=== PATIENT | female | born 1970 | race Caucasian/White ===

== ENCOUNTER → 2016-08-05 | Outpatient (CLI) | payer BC, OTHER ==
[~2016-08-05] MED LIST: ASPEC325 PO; BUPR-83 PO; BUPR200T2 PO; CEPH500C2 PO; CLC100 PO; CLX/20 PO; HYDR-3126 PO; LAMO1TAB21 PO; OXYSR10 PO; PANT1TAB48 PO; PRED20TA2 PO; RANI150T3 PO
[2016-08-05 10:13] LABS: BASO % 0.9 %; BASO ABS # 0.04 K/uL (0-0.2); COMPLETE YES; EOS % 5.1 %; IG% 0.2 %; LYMPH % 23.9 %; LYMPH ABS # 1.04 K/uL (1.2-3.4); MEAN CELL VOLUME 92.1 fL (80-100); MEAN CORPUSCULAR HEMOGLOBIN 28.9 pg (25-34); MEAN CORPUSCULAR HGB CONC 31.4 g/dl (32-36); MEAN PLATELET VOLUME 9.6 fL (7.4-10.4); MONO % 10.6 %; NEUT % 59.3 %; PLATELET COUNT 297 K/uL (130-400); WHITE BLOOD COUNT 4.35 K/uL (4.8-10.8)
[2016-08-05 10:50] LABS: ALT/SGPT 22 U/L (12-78); AST/SGOT 13 U/L (15-37); BLOOD UREA NITROGEN 9 mg/dl (7-18); BUN/CREATININE RATIO 10.7 (10-20); CALCIUM 7.8 mg/dl (8.5-10.1); CARBON DIOXIDE 27 mmol/L (21-32); CHLORIDE 108 mmol/L (98-107); CREATININE 0.83 mg/dl (0.60-1.20); GLUCOSE 93 mg/dl (70-99); SODIUM 141 mmol/L (136-145)
[2016-08-05 11:00] LABS: ALB/GLOB RATIO 0.9 (0.9-2); ALKALINE PHOSPHATASE 53 U/L (45-117); CHOLESTEROL 226 mg/dl (0-200); CHOLESTEROL/HDL RATIO 3.2; HDL CHOLESTEROL 71 mg/dl; LDL CHOLESTEROL CALCULATED 127 mg/dl; TRIGLYCERIDES 138 mg/dl (0-150); VERY LOW DENSITY LIPOPROT CALC 28 mg/dl
== END | disposition home or self-care (01) ==
LOC: C.LAB1850 09:17
PROVIDERS: ATTEND Physician Assistant
DX: R07.89 Other chest pain (principal)

== ENCOUNTER 2016-10-29 17:16 | Emergency (ER) | payer BC, OTHER ==
[~2016-10-29] VITALS: Ht 165.1 cm; Wt 147.2 kg
[~2016-10-29 17:16] MED LIST changes: -CEPH500C2 PO; -HYDR-3126 PO; -PRED20TA2 PO
[2016-10-29 17:21] VITALS: TEMP 37.5; Ht 165.1 cm; Wt 147.2 kg
[2016-10-29] MEDS ORDERED: hydrOXYzine HCL 25 MG TAB PO STA ×2 (17:39→19:13)
[2016-10-29] MEDS ORDERED: DEXAMETHASONE SOD INJ 10 MG/ML VIAL IV ONE (17:45)
[2016-10-29 18:05] LABS: BASO % 0.4 %; BASO ABS # 0.02 K/uL (0-0.2); COMPLETE YES; EOS % 3.9 %; HEMATOCRIT 35.8 % (37-47); IG% 0.2 %; LYMPH % 16.8 %; LYMPH ABS # 0.94 K/uL (1.2-3.4); MEAN CORPUSCULAR HEMOGLOBIN 30.4 pg (25-34); MEAN CORPUSCULAR HGB CONC 32.7 g/dl (32-36); MEAN PLATELET VOLUME 9.1 fL (7.4-10.4); MONO % 5.4 %; NEUT % 73.3 %; PLATELET COUNT 240 K/uL (130-400); RED BLOOD COUNT 3.85 M/uL (4.2-5.4)
[2016-10-29 18:16] LABS: PROTHROMBIN TIME (PATIENT) 10.8 SECONDS (9.0-12.0)
[2016-10-29 18:23] LABS: BUN/CREATININE RATIO 12.9 (10-20); CALCIUM 7.9 mg/dl (8.5-10.1); POTASSIUM 3.7 mmol/L (3.5-5.1)
[2016-10-29] MEDS ORDERED: OXYCODONE HCL IR 5 MG TAB (IMMEDIATE RELEASE) PO STA (18:40)
--- NOTE | 2016-10-29 18:57 | EMERGENCY ROOM VISIT NOTE ---
ED Visit Note First contact with patient: 17:28 The patient was seen and examined with Alicia Cardona PA-C. I agree with the history, physical and findings. Please see the note for disposition and details. The patient has diffuse dermatitis was been going on for many months. I was concerned about a secondary infection in the leg. The patient will be treated with antibiotics and prednisone. Atarax was discussed. She will contact her car usher on Monday to see about bumping up her pending tertiary referral. Unfortunately in the offices are closed right now and we cannot assist in that endeavor. There is no evidence of Hernandez Johnsons or TEN. No necrotizing fasciitis.
[2016-10-29] MEDS ORDERED: CEPH500C2 PO (19:19)
[2016-10-29] MEDS ORDERED: PRED20TA2 PO (19:19)
[2016-10-29] MEDS ORDERED: HYDR-3126 PO (19:19)
--- NOTE | 2016-10-29 19:22 | EMERGENCY ROOM VISIT NOTE ---
History First contact with patient: 17:28 Chief Complaint: RASH Stated Complaint: RASH History of Present Illness The patient is a 46 year old female who presents to the Emergency Room with complaints of a rash all over her body. The patient states that she is under the care of Dr. Bailey for her rash. The patient states that one year ago the rash started with just small bumps on the top of both her feet were very itchy. In September of this year she started with similar bumps and redness on both her forearms. Since that time it has spread over most of her body. She has gone back to Dr. Bailey 4 times for the rash. She was using steroid creams but it did not seem to get any better. She has an appointment at [facility] at the end of November for a second opinion. The patient has been taking Benadryl around the clock for the itch with little relief. The patient states that she has been scratching at the rash. The patient denies any fever, throat or chest tightness. Review of Systems 10 system review was performed and was negative unless stated otherwise history of present illness. Past Medical/Surgical History Medical Problems: (1) Depressive Disorder Nec (2) Morbid Obesity (3) Reflux Esophagitis Surgical Problems: (1) H/O section (2) History of hysterectomy (3) Hx of cholecystectomy Social History Smoking Status: Never Smoker Marital Status: Occupation Status: employed Current/Historical Medications Scheduled Bupropion (Wellbutrin), 100 MG PO BID Citalopram (Citalopram Hydrobromide), 20 MG PO QAM Lamotrigine (Lamotrigine), 50 MG PO BID Pantoprazole (Protonix), 40 MG PO DAILY Physical Exam Vital Signs Date Time Temp Pulse Resp B/P (MAP) Pulse Ox O2 Delivery O2 Flow Rate FiO2 10/29/16 18:54 95 16 121/70 98 Room Air 10/29/16 17:21 37.5 118 20 173/106 97 Room Air Physical Exam GENERAL: Obese 46-year-old white female appears in no acute distress. MENTAL Status: Alert and oriented 3. NECK: Supple, no lymphadenopathy noted. No carotid bruits noted. LUNGS: Clear auscultation without wheezes rales or rhonchi. CARDIAC: Regular rate and rhythm without murmur. SKIN: The patient has a dry erythematous raised scaling rash over her trunk, bilateral arms and bilateral legs. There is also a small amount on her face. It is also on her the tops of her feet. The rash blanches. There is no deep erythema or any purulent drainage. There is some oozing open areas with clear drainage on the back of both lower legs. Medical Decision & Procedures Laboratory Results 10/29/16 18:00 Red Blood Count 3.85, Mean Corpuscular Volume 93.0, Mean Corpuscular Hemoglobin 30.4, Mean Corpuscular Hemoglobin Concent 32.7, Mean Platelet Volume 9.1, Neutrophils (%) (Auto) 73.3, Lymphocytes (%) (Auto) 16.8, Monocytes (%) (Auto) 5.4, Eosinophils (%) (Auto) 3.9, Basophils (%) (Auto) 0.4, Neutrophils # (Auto) 4.11, Lymphocytes # (Auto) 0.94, Monocytes # (Auto) 0.30, Eosinophils # (Auto) 0.22, Basophils # (Auto) 0.02 10/29/16 18:00 Test 10/29/16 18:00 White Blood Count 5.60 K/uL (4.8-10.8) Red Blood Count 3.85 M/uL (4.2-5.4) Hemoglobin 11.7 g/dL (12.0-16.0) Hematocrit 35.8 % (37-47) Mean Corpuscular Volume 93.0 fL (80-100) Mean Corpuscular Hemoglobin 30.4 pg (25-34) Mean Corpuscular Hemoglobin Concent 32.7 g/dl (32-36) Platelet Count 240 K/uL (130-400) Mean Platelet Volume 9.1 fL (7.4-10.4) Neutrophils (%) (Auto) 73.3 % Lymphocytes (%) (Auto) 16.8 % Monocytes (%) (Auto) 5.4 % Eosinophils (%) (Auto) 3.9 % Basophils (%) (Auto) 0.4 % Neutrophils # (Auto) 4.11 K/uL (1.4-6.5) Lymphocytes # (Auto) 0.94 K/uL (1.2-3.4) Monocytes # (Auto) 0.30 K/uL (0.11-0.59) Eosinophils # (Auto) 0.22 K/uL (0-0.5) Basophils # (Auto) 0.02 K/uL (0-0.2) RDW Standard Deviation 54.3 fL (36.4-46.3) RDW Coefficient of Variation 16.1 % (11.5-14.5) Immature Granulocyte % (Auto) 0.2 % Immature Granulocyte # (Auto) 0.01 K/uL (0.00-0.02) Prothrombin Time 10.8 SECONDS (9.0-12.0) Prothromb Time International Ratio 1.0 (0.9-1.1) Activated Partial Thromboplast Time 25.9 SECONDS (21.0-31.0) Partial Thromboplastin Ratio 1.0 Anion Gap 3.0 mmol/L (3-11) Est Creatinine Clear Calc Drug Dose 101.1 ml/min Estimated GFR () 77.2 Estimated GFR (Non- 66.6 BUN/Creatinine Ratio 12.9 (10-20) Calcium Level 7.9 mg/dl (8.5-10.1) Medications Administered Medications (Trade) Dose Ordered Sig/Cain Route Start Time Stop Time Status Last Admin Dose Admin Dexamethasone Sodium Phosphate (Decadron Inj) 10 mg NOW ONCE IV 10/29/16 17:45 10/29/16 17:46 DC 10/29/16 17:54 10 MG Hydroxyzine HCl (Vistaril Tab) 25 mg NOW STAT PO 10/29/16 17:39 10/29/16 17:41 DC 10/29/16 17:54 25 MG Oxycodone HCl (Roxicodone Immediate Rel Tab) 10 mg NOW STAT PO 10/29/16 18:40 10/29/16 18:42 DC 10/29/16 18:55 10 MG ED Course The patient was evaluated. The patient's EMR medication list were reviewed. IV access was obtained. CBC, differential and renal profile as well as coags were ordered. The patient was given Decadron 10 mg IV and Atarax 25 mg by mouth. Labs are reviewed and were unremarkable. The patient was reevaluated and stated she was still itchy and and pain. The patient was therefore given OxyIR 10 mg by mouth for pain. The patient was reevaluated. She was also independently evaluated by macule who agreed with treatment plan. The patient was given additional 50 mg of Atarax by mouth. We discussed at length with the patient that her she needs to be addressed with dermatology. The patient verbalized understanding. The patient was discharged home with a family member driving. Medical Decision Differential diagnosis include cellulitis, dermatitis, psoriasis, allergic dermatitis, scabies Impression Primary Impression: Dermatitis Departure Information Dispostion Home / Self-Care Condition GOOD Prescriptions Cephalexin Monohydrate (KEFLEX) 500 Mg Cap 500 MG PO QID for 10 Days, #40 CAP Prov: Nevaeh Cardona PA-C 10/29/16 Prednisone (Prednisone Tab) 20 Mg Tab 3 TAB PO DAILY for 5 Days, #15 TAB FOR 4 DAYS Prov: Nevaeh Cardona PA-C 10/29/16 Hydroxyzine Hcl (ATARAX) 50 Mg Tab 1-2 TAB PO Q6 for Itching, #60 TAB 2 Refills Prov: Nevaeh Cardona PA-C 10/29/16 Referrals No Doctor, Assigned (PCP) Forms HOME CARE DOCUMENTATION FORM, IMPORTANT VISIT INFORMATION, WORK / SCHOOL INSTRUCTIONS Patient Instructions My [facility] Ti[facility]do Additional Instructions Keep areas is cool as possible. Do not use any fragrance moisturizers. May try Vaseline with cotton socks over top overnight. Take Atarax as prescribed. May also take coyk-xkl-likvuul Cuca every 12 hours. Atarax may make you drowsy. Take prednisone as prescribed. Take Keflex as prescribed. Call Dr. Bailey on Monday to see if he can get chair appointment at [facility] dermatology moved to an earlier date. When you are driving tomorrow take frequent stops and walk around the car to prevent a clot in your leg.
[2016-10-29 19:33] VITALS: BP 121/70; PULSE 95; O2SAT 98
[2016-10-29] MEDS ORDERED: OXYCODONE IR HOME PACK PO ONE (19:45)
[2016-10-29] MEDS ORDERED: CEPHALEXIN 500MG HOME PACK 1 EA BTL PO ONE (20:11)
[2016-10-29] MEDS ORDERED: EMPTY 8 DRAM VIAL ONE (20:11)
== END 2016-10-29 19:34 | disposition home or self-care (01) ==
LOC: C.EDB 17:18 → C.EDD 19:34
DX: L30.9 Dermatitis, unspecified (principal); F32.9 Major depressive disorder, single episode, unspecified; E66.01 Morbid (severe) obesity due to excess calories; Z79.899 Other long term (current) drug therapy

== ENCOUNTER 2019-04-14 01:51 | Observation (INO) ==
[2019-04-14] MEDS ORDERED: DIPHTHERIA/TETANUS/PERTUSSIS 0.5 ML SYR/VIAL IM ONE (02:10)
[2019-04-14] MEDS ORDERED: fentaNYL citrate 100 MCG/2 ML VIAL IV STA (02:10)
--- NOTE | 2019-04-14 02:16 | Emergency Department Note ---
ED Provider Note Name: DOROTHY HUTTON Age: 49 Arrives Via: Walk-In Informant: Patient, Children CC: head injury HPI: 49F arrives for evaluation of head injury. Patient carrying groceries in to the house when she slipped on wet cement and hit head on ground. Denies LOC but felt unsteady. Able to call children who came and took her to ED. Walking, sound, light, movement, talking, all make headache worse. Notes some associated neck stiffness. Admits left hand pain where she hit it off ground. No me dications prior to arrival. Staying still and quiet makes headache better. No other injuries. Denies syncope, nor other symptoms prior to fall. She does not fall regularly. Children note she was having trouble ambulating after head injury. Denies ETOH/drug abuse. ROS: See above HPI for pertinent positives & negatives. A total of 10 systems reviewed and were otherwise negative. Past Medical History:GERD, Depression, Migraine, Anxiety Past Surgical History:Cholecystectomy, Knee replacement, Hysterectomy, [place] tooth, strabismus surg Family History:Grandparents DMII Social History:Lives with children, nonsmoker, rare ETOH, no drugs Home Medications:See Below Allergies:See Below Vitals:Blood Pressure 119/69, Pulse 96, Resp 22, T 37C, O2 98% on RA Physical Exam: GENERAL: Patient is very anxious appearing and in moderate distress. HEAD: Large contusion over bilateral forehead R>L EYES: No scleral icterus, unremarkable pupils. ENT: Mucous membranes moist, no nasal congestion. NECK: No masses appreciated, nomeningismus, trachea is midline. RESPIRATORY: No dyspnea. Clear to auscultation and equal bilaterally. No wheeze, no rhonchi. CARDIOVASCULAR: Regular rate and rhythm.No murmurs, rubs, gallops appreciated. GASTROINTESTINAL: Abdomen soft, non-tender, no peritonitis.Bowel sounds positive.No masses appreciated. BACK: No midline tenderness, no CVA tenderness EXTREMITIES: Normal motion all extremities, no cyanosis, no edema. NEUROLOGIC: Alert and oriented, no acute motor or sensory deficits, no focal weakness, cranial nerves grossly intact. SKIN: Abrasion over left lateral hand at base 5th digit no active bleeding. No rash, no jaundice, no diaphoresis. ED Course: Prior Medical Record, Triage/Nursing Notes, Medications, Allergies reviewed by Me Vital Signs: reviewed and remarkable for no acute findings Labs:Reviewed and remarkable for no significant abnormalities Interventions: saline lock, fenantyl 75mcg IV, dilaudid 1mg IV, toradol 30mg IV,a dacel IM Imaging: [facility] Radiologist interpretation reviewed by me: ct head, cervical spine negative acute findings other then forehead contusion and cervical arthritic findings Xray Results per my interpretation: Hand, left 3 view: no acute fracture, dislocation Consults:Dr Mejia Reassessments/Times: Multiple. Gradually improving pain though ataxia. After several hours still unable to ambulate without falling. Blood pressure:Normal.No Referral necessary Disposition:Hospitalization Differentials:ICH, skull fx, cervical fracture, dislocation, tetanus vaccination, hand fracture, non-mechanical fall amongst other pathologies. Medical Decision Makin yr old female with h/o gerd, depression, anxiety and migraines arrives following what she makes clear was mechanical fall resulting in head injury without LOC. She arrives very upset and uncomfortable with headache and not willing to let full examination. After initial fentanyl feeling a bit better and exam completed. Continued headache and 1mg IV dilaudid given while awaiting ct findings. CT head/cervical negative acute findings. Toradol post CT with improvement headache and manageable pain. Wishing to try getting home but fails at ambulating due to ataxia. No neck pain any further. No stroke findings on examination. Does not seem consistent with dissection/thrombosis. Do to persistent ambulatory issues and no improvement will bring in to hospital for further monitoring and observation. Impression: Ataxia Closed Head Injury Concussion Psnxrqelow-pvoshar-gisexasfu vaccination Post-Concussion Headache Chu Vivas MD Impression & Plan Concussion, Closed head injury, Ataxia, Lsigvowmys-bbjurxc-fhfzxaadc (DTP) vaccination, Post-concussion headache Past Med/Surg History Medical History (Updated 04/14/19 @ 05:19 by Ras Mejia MD) Anxiety Anxiety and depression Depression GERD (gastroesophageal reflux disease) Migraine Temporomandibular joint disorder BILAT-CLICKS AND POPS LOCKED 5 YRS AGO Surgical History History of arthroscopy of left knee x3 History of section x3 History of cholecystectomy History of dilatation and curettage History of esophagogastroduodenoscopy (EGD) History of hysterectomy History of strabismus surgery left eye x2 History of total left knee replacement (TKR) History of wisdom tooth extraction Social History Preferred Language: Vietnamese Communication Ability: Effective Visual Impairment: Limited Hearing Ability: Hard of Hearing 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 Beliefs That Will Affect Care: None Current Living Situation: Family Current Living Situation Comment: Lives with 3 kids Feels Safe at Home: Yes Smoking Status: Never smoker Second Hand Exposure: Yes (mother smoked) ; Hx Alcohol Use: Yes (RARELY) Alcohol type: beer Hx Substance Use: No Dental Care, Regularly: Yes Physical Activity Frequency: Daily Results & Data Vital Signs Vital Signs - 24 hr 04/14/19 01:54 04/14/19 03:13 04/14/19 05:22 Temperature 37 C Temperature Source Oral Pulse Rate 96 H Pulse Rate [Finger] 78 94 H Respiratory Rate 22 18 18 Respiratory Effort / Characteristics Non-Labored Spontaneous Non-Labored Spontaneous Respiratory Depth Normal Normal Blood Pressure 119/69 Blood Pressure [Right Arm] 154/89 H 161/95 H Blood Pressure Mean 85 Blood Pressure Mean [Right Arm] 110 117 Blood Pressure Position Sitting Pulse Oximetry 98 95 95 Oxygen Delivery Method Room Air Room Air Room Air Sepsis Recent Fever Within 48 Hours No Sepsis New/Unexplained Change in Mental Status No Sepsis Action Taken by Nursing No Action Required 04/14/19 05:33 Temperature Temperature Source Pulse Rate 93 H Pulse Rate [Finger] Respiratory Rate 18 Respiratory Effort / Characteristics Respiratory Depth Blood Pressure 144/87 H Blood Pressure [Right Arm] Blood Pressure Mean Blood Pressure Mean [Right Arm] Blood Pressure Position Pulse Oximetry 95 Oxygen Delivery Method Room Air Sepsis Recent Fever Within 48 Hours Sepsis New/Unexplained Change in Mental Status Sepsis Action Taken by Nursing Laboratory Data Result diagrams: 04/14/19 02:20 04/14/19 02:20 Lab Results 04/14/19 04/14/19 04/14/19 Range/Units 02:20 02:20 02:20 WBC 8.03 (4.8-10.8) K/uL RBC 4.13 L (4.2-5.4) M/uL Hgb 13.1 (12.0-16.0) g/dL Hct 39.9 (37-47) % MCV 96.6 (80-100) fL MCH 31.7 (25-34) pg MCHC 32.8 (32-36) g/dL RDW Std Deviation 50.2 H (36.4-46.3) fL RDW Coeff of Bob 14.4 (11.5-14.5) % Plt Count 283 (130-400) K/uL MPV 9.4 (7.4-10.4) fL Immature Gran % (Auto) 0.1 % Neut % (Auto) 66.2 % Lymph % (Auto) 21.8 % [place] % (Auto) 9.7 % Eos % (Auto) 1.7 % Baso % (Auto) 0.5 % Immature Gran # (Auto) 0.01 (0.00-0.02) K/uL Neut # (Auto) 5.31 (1.4-6.5) K/uL Lymph # (Auto) 1.75 (1.2-3.4) K/uL [place] # (Auto) 0.78 H (0.11-0.59) K/uL Eos # (Auto) 0.14 (0-0.5) K/uL Baso # (Auto) 0.04 (0-0.2) K/uL Sodium 137 (136-145) mmol/L Potassium 4.3 (3.5-5.1) mmol/L Chloride 108 H (98-107) mmol/L Carbon Dioxide 25 (21-32) mmol/L Anion Gap 4.0 (3-11) BUN 13 (7-18) mg/dl Creatinine 1.00 (0.6-1.2) mg/dl Est Cr Clr Drug Dosing Not Reportable Est GFR ( Amer) 75.5 Est GFR (Non-Af Amer) 65.2 BUN/Creatinine Ratio 13.3 (10-20) Glucose 87 (70-99) mg/dl Calcium 8.6 (8.5-10.1) mg/dl Ethyl Alcohol mg/dL < 3.0 (0-3) mg/dl Administered Medications Discontinued Medications Diphtheria/Pertussis/Tetanus Vacc (Adacel) 0.5 ml IM .ONCE ONE Stop: 04/14/19 02:11 Last Admin: 04/14/19 02:19 Dose: 0.5 ml Documented by: [id number] Fentanyl Citrate (Fentanyl Citrate) 75 mcg IV NOW STA Stop: 04/14/19 02:11 Last Admin: 04/14/19 02:18 Dose: 75 mcg Documented by: [id number] Hydromorphone HCl (Dilaudid) 1 mg IV NOW STA Stop: 04/14/19 02:42 Last Admin: 04/14/19 02:45 Dose: 1 mg Documented by: [id number] Ketorolac Tromethamine (Toradol) 30 mg IV NOW STA Stop: 04/14/19 03:09 Last Admin: 04/14/19 03:11 Dose: 30 mg Documented by: [id number] Discharge Plan Visit Data Chief Complaint: Fall Stated Complaint: FALL,BUMP ON HEAD,SHAKING ED Provider: Chu Vivas Discharge Problem: Concussion, Closed head injury, Ataxia, Gbovwosgbp-nhbnygz-jvdkpdpcd (DTP) vaccination, Post-concussion headache Discharge Instructions Interventions: ED Discharge Assessment Last Done: 04/14/19 05:33 Forms Stand Alone Forms: [facility] Prescriptions Prescriptions: No Action cyclobenzaprine 10 mg tablet 10 mg PO TID PRN (Reason: muscle spasm) Qty: 20 RF: 0 bupropion HCl 100 mg Tablet 100 mg PO QPM RF: 0 lamotrigine [Lamictal] 100 mg Tablet 100 mg PO QAM RF: 0 bupropion HCl 200 mg Tablet Sustained-Release 12 Hr 200 mg PO QAM RF: 0 Prilosec OTC 20 mg Tablet,Delayed Release (Dr/Ec) 20 mg PO DAILY PRN (Reason: Acid Reflux) RF: 0 lamotrigine 100 mg tablet 50 mg PO QPM RF: 0 citalopram 40 mg tablet 60 mg PO DAILY RF: 0 gabapentin 600 mg tablet 600 mg PO TID RF: 0 Referrals Referrals: Rosetta Santana MD [Primary Care Provider] - Discharge Problem: Concussion Qualifiers: Encounter type: initial encounter Loss of consciousness presence/duration: without LOC Qualified Code(s): S06.0X0A - Concussion without loss of consciousness, initial encounter Closed head injury Qualifiers: Encounter type: initial encounter Qualified Code(s): S09.90XA - Unspecified injury of head, initial encounter
[2019-04-14 02:36] LABS: Basophils # (auto) 0.04 K/uL (0-0.2); Basophils % (auto) 0.5 %; Eosinophils # (auto) 0.14 K/uL (0-0.5); Eosinophils % (auto) 1.7 %; Hematocrit (blood only) 39.9 % (37-47); Hemoglobin 13.1 g/dL (12.0-16.0); Immature Granulocytes # (auto) 0.01 K/uL (0.00-0.02); Immature Granulocytes % (auto) 0.1 %; Lymphocytes # (auto) 1.75 K/uL (1.2-3.4); Lymphocytes % (auto) 21.8 %; Mean Corpuscular Hemoglobin 31.7 pg (25-34); Mean Corpuscular Hgb Conc 32.8 g/dL (32-36); Mean Corpuscular Volume 96.6 fL (80-100); Mean Platelet Volume 9.4 fL (7.4-10.4); Monocytes # (auto) 0.78 K/uL (0.11-0.59); Monocytes % (auto) 9.7 %; Neutrophils # (auto) 5.31 K/uL (1.4-6.5); Neutrophils % (auto) 66.2 %; Platelet Count 283 K/uL (130-400); RDW Coefficient of Variation 14.4 % (11.5-14.5); RDW Standard Deviation 50.2 fL (36.4-46.3); Red Blood Count 4.13 M/uL (4.2-5.4); White Blood Count 8.03 K/uL (4.8-10.8)
[2019-04-14] MEDS ORDERED: HYDROmorphone INJ 1 MG/ML SYRINGE IV STA (02:41)
[2019-04-14 02:56] LABS: BUN Creatinine Ratio 13.3 (10-20); Blood Urea Nitrogen 13 mg/dl (7-18); Calcium 8.6 mg/dl (8.5-10.1); Carbon Dioxide 25 mmol/L (21-32); Chloride 108 mmol/L (98-107); Est GFR (African American) 75.5; Est GFR (Non-African American) 65.2; Glucose 87 mg/dl (70-99); Potassium 4.3 mmol/L (3.5-5.1); Sodium 137 mmol/L (136-145)
[2019-04-14] MEDS ORDERED: KETOROLAC 30 MG/ML VIAL IV STA (03:08)
--- NOTE | 2019-04-14 05:26 | History & Physical Report ---
Date of Service April 14, 2019 Assessment & Plan (1) Post-concussion headache: Postconcussive headache/post closed head injury/ataxia, ambulatory dysfunction- The patient has been given a combination of fentanyl citrate 75 mcg IV, Dilaudid 1 mg IV and Toradol 30 mg IV, that she reports have given no improvement in her headache, and is asking for more pain medications now. Place on acetaminophen 1 g IV every 8 hours PRN Benadryl 25 mg IV every 4 hours as needed. Neuro checks per protocol every 4 hours x3 sets. Consult neurology. Present on Admission?: Yes (2) Closed head injury: CT of head negative for acute injury. Present on Admission?: Yes (3) Ataxia: Ataxia/ambulatory dysfunction- Nurses report patient had difficulty walking because she was trying to keep a towel over her head while she was walking. Patient does have chronic sensory disturbance for which she takes medications, that may be aggravated. Present on Admission?: Yes (4) Anxiety and depression: Anxiety and depression/migraine- Continue her usual regimen: Bupropion, citalopram, gabapentin, lamotrigine. Consult neurology Present on Admission?: Yes History of Present Illness Chief Complaint: The patient presents to the emergency department complaining of right-sided headache after she slipped and fell while stepping over a curb, and hitting her head. Primary Care Provider: Rosetta Santana MD The patient is a 49-year-old female with a past medical history including anxiety and depression, muscle spasm, and GERD. She presents to the emergency department with right-sided headache and nausea after she slipped on the wet ground and tripped over a curb, hitting the right side of her head. She denies loss of consciousness or vision change. She has chronic tinnitus, and chronic numbness/tingling in hands and feet. Allergies Allergy/AdvReac Type Severity Reaction Status Date / Time velez Allergy Mild itchy Verified 04/14/19 02:16 throat kiwi Allergy Mild itchy Verified 04/14/19 02:16 throat nut - unspecified Allergy Mild itchy Verified 04/14/19 02:16 throat pollen extracts Allergy Mild ITCHING, Verified 04/14/19 02:16 SNEEZING No Known Drug Allergies Allergy Unknown Verified 04/14/19 02:16 Home Medications Home Medications Medication Instructions Recorded Confirmed Type Prilosec OTC 20 mg PO DAILY PRN 07/18/18 04/14/19 History bupropion HCl 100 mg PO QPM 07/18/18 04/14/19 History bupropion HCl 200 mg PO QAM 07/18/18 04/14/19 History lamotrigine [Lamictal] 100 mg PO QAM 07/18/18 04/14/19 History cyclobenzaprine 10 mg tablet 10 mg PO TID PRN #20 tab 12/18/18 04/14/19 Rx citalopram 60 mg PO DAILY 04/14/19 04/14/19 History gabapentin 600 mg PO TID 04/14/19 04/14/19 History lamotrigine 50 mg PO QPM 04/14/19 04/14/19 History Past Med/Surg History Social History Preferred Language: Armenian Communication Ability: Effective Visual Impairment: Limited Hearing Ability: Hard of Hearing Accounts Payable Professional Required: No Beliefs That Will Affect Care: None Current Living Situation: Family Current Living Situation Comment: Lives with 3 kids Feels Safe at Home: Yes Smoking Status: Never smoker Second Hand Exposure: Yes (mother smoked) ; Hx Alcohol Use: Yes (RARELY) Alcohol type: beer Hx Substance Use: No Dental Care, Regularly: Yes Physical Activity Frequency: Daily Review of Systems Review of Systems: The patient denies chest pain, palpitations, shortness of breath, dyspnea on exertion, cough, lower extremity swelling, sore throat, fevers, chills, sweats, omiting, diarrhea , constipation, abdominal pain, pelvic pain, blood in urine or stool, dysuria, urinary frequency or urgency, memory loss, loss of consciousness, rash, abnormal bruising or bleeding, focal weakness, numbness or tingling in arms or legs,back or neck pain, or night sweats. She has no change in her chronic numbness/tingling in arms and legs, or change in generalized muscle aches. The review of systems is otherwise negative other than for that already noted above, and at least 10 systems have been reviewed. Physical Exam Physical Exam: The patient is awake, alert and oriented 3, well developed and well nourished, normocephalic and atraumatic, lying in bed and in no acute distress. HEENT--PERRL, EOMI, mucous membranes and oropharynx normal. Heart--normal S1 and S2. No murmurs, rubs or gallops. Lungs--clear bilaterally, no respiratory distress, no accessory muscle use. Abdomen--normal bowel sounds and soft. Nontender. Nondistended, no hernias or masses, no organomegaly. Extremities--no cyanosis or clubbing. No edema. Dermatologic--normal skin turgor, normal color, no abnormal lymph nodes, no r chyna. Neurologic--cranial nerves II through XII grossly intact. Rheumatologic--normal range of motion. Psychiatric--normal affect. Results & Data Vital Signs (Past 12 Hours) Vital Signs Temp Pulse Pulse Resp BP BP Pulse Ox 04/14/19 03:13 78 18 154/89 H 95 04/14/19 01:54 98.6 F 96 H 22 119/69 98 Laboratory Results Laboratory Results WBC 8.03 K/uL (4.8-10.8) 04/14/19 02:20 RBC 4.13 M/uL (4.2-5.4) L 04/14/19 02:20 Hgb 13.1 g/dL (12.0-16.0) 04/14/19 02:20 Hct 39.9 % (37-47) 04/14/19 02:20 MCV 96.6 fL (80-100) 04/14/19 02:20 MCH 31.7 pg (25-34) 04/14/19 02:20 MCHC 32.8 g/dL (32-36) 04/14/19 02:20 RDW Std Deviation 50.2 fL (36.4-46.3) H 04/14/19 02:20 RDW Coeff of Bob 14.4 % (11.5-14.5) 04/14/19 02:20 Plt Count 283 K/uL (130-400) 04/14/19 02:20 MPV 9.4 fL (7.4-10.4) 04/14/19 02:20 Immature Gran % (Auto) 0.1 % 04/14/19 02:20 Neut % (Auto) 66.2 % 04/14/19 02:20 Lymph % (Auto) 21.8 % 04/14/19 02:20 Traverse % (Auto) 9.7 % 04/14/19 02:20 Eos % (Auto) 1.7 % 04/14/19 02:20 Baso % (Auto) 0.5 % 04/14/19 02:20 Immature Gran # (Auto) 0.01 K/uL (0.00-0.02) 04/14/19 02:20 Neut # (Auto) 5.31 K/uL (1.4-6.5) 04/14/19 02:20 Lymph # (Auto) 1.75 K/uL (1.2-3.4) 04/14/19 02:20 Traverse # (Auto) 0.78 K/uL (0.11-0.59) H 04/14/19 02:20 Eos # (Auto) 0.14 K/uL (0-0.5) 04/14/19 02:20 Baso # (Auto) 0.04 K/uL (0-0.2) 04/14/19 02:20 Sodium 137 mmol/L (136-145) 04/14/19 02:20 Potassium 4.3 mmol/L (3.5-5.1) 04/14/19 02:20 Chloride 108 mmol/L (98-107) H 04/14/19 02:20 Carbon Dioxide 25 mmol/L (21-32) 04/14/19 02:20 Anion Gap 4.0 (3-11) 04/14/19 02:20 BUN 13 mg/dl (7-18) 04/14/19 02:20 Creatinine 1.00 mg/dl (0.6-1.2) 04/14/19 02:20 Est Cr Clr Drug Dosing Not Reportable 04/14/19 02:20 Est GFR ( Amer) 75.5 04/14/19 02:20 Est GFR (Non-Af Amer) 65.2 04/14/19 02:20 BUN/Creatinine Ratio 13.3 (10-20) 04/14/19 02:20 Glucose 87 mg/dl (70-99) 04/14/19 02:20 Calcium 8.6 mg/dl (8.5-10.1) 04/14/19 02:20 Ethyl Alcohol mg/dL < 3.0 mg/dl (0-3) 04/14/19 02:20 Diagnostic Findings [facility] Patient: DOROTHY HUTTON (Female) : 66 Status: ER Date: 04/14/19 02:38 Room #: History: fall, head injury, neck pain Slices: [id number] Priors: Tech: Bari Byrd @ [id number] Exams: CT HEAD, CT C SPINE Accession Numbers: [id number], [id number] Preliminary Findings Only See Final Report For Complete Findings CT HEAD: No intracranial hemorrhage, midline shift or mass effect. No skull fracture. Right supraorbital and frontal hyperdense superficial soft tissue swelling, most consistent with contusive injury. No radiopaque foreign body. CT C SPINE: No acute osseous traumatic injury or significant abnormal alignment. Significant multilevel disc spondylosis with narrowing and marginal hypertrophic changes at multiple levels. No severe osseous canal stenosis suggested. Visible lung apices demonstrate no radiographic evidence for significant acute traumatic injury. Radiologist: Jamaal Kohli MD Study ready at 02:43 and initial results transmitted at 03:03 *This report constitutes a preliminary interpretation only. Non-acute findings felt to be unrelated to the clinical presentation may not be discussed in this report. The study will be interpreted and a final report will be generated by the local Radiologist the following shift. To reach the hospital radiology department call [phone]. If a discrepancy is found between the preliminary and final interpretations of this study, please notify us via our Client Portal at [email or web address] QA Exams.You can also fax this report with a description of the discrepancy, or include the final report, to our [facility] fax number [phone].If faxing, please indicate the severity of discrepancy using one of the following categories: [ ] 1 - Agree/Informational [ ] 2 - Unlikely to Affect Management [ ] 3 - Possible Eventual Change of Management [ ] 4 - Probable Immediate Change of Management For all other patient related information, please fax us at [phone] [id number] Code Status & VTE Plan Code Status Full code VTE Prophylaxis Plan VTE Prophylaxis will be ordered: Yes PG Care Time/CCT Total # of Minutes Spent Total Time Spent with Patient: Total time spent is greater than 50% in coordination of care (as documented) at patient's floor/unit and/or counseling patient: (1) Closed head injury Encounter type: initial encounter Qualified Code(s): S09.90XA - Unspecified injury of head, initial encounter
[2019-04-14] MEDS ORDERED: MAGNESIUM HYDROXIDE SUSP 30 ML UDC PO PRN (06:00)
[2019-04-14] MEDS ORDERED: ALUMINUM/MAGNESIUM SUSP 30 ML UDC PO PRN (06:00)
[2019-04-14] MEDS ORDERED: DiphenhydrAMINE HCL 50 MG/ML VIAL IV PRN (06:00)
[2019-04-14] MEDS ORDERED: ACETAMINOPHEN 1,000 MG/100 ML VIAL IV PRN (06:00)
[2019-04-14] MEDS ORDERED: POLYETHYLENE (MIRALAX) 17 GM PACK PO PRN (06:00)
[2019-04-14] MEDS ORDERED: ONDANSETRON INJ 2 MG/ML 2 ML VIAL IV PRN (06:00)
[2019-04-14] MEDS ORDERED: CYCLOBENZAPRINE HCL 10 MG TAB PO PRN (06:05)
[2019-04-14] MEDS ORDERED: PANTOprazole 40 MG TAB PO PRN (06:06)
[2019-04-14] MEDS: ACETAMINOPHEN 325 MG TAB PO PRN (06:30)
--- NOTE | 2019-04-14 06:44 | CT Scan Report ---
CT head/brain wo con CLINICAL HISTORY: Head pain status post trauma COMPARISON STUDY: No previous studies for comparison. TECHNIQUE: Axial CT of the brain is performed from the vertex to the skull base. IV contrast was not administered for this examination. A dose lowering technique was utilized adhering to the principles of ALARA. CT DOSE: 1048.76 mGy.cm FINDINGS: No intra or extra-axial mass lesions are visualized. There is no CT evidence of acute cortical infarc tion. There is no evidence of midline shift. There is no acute hemorrhage. No calvarial fractures ar e visualized. There is a right frontal scalp hematoma. There is no evidence of pathologic ventricular dilatation. There is no evidence of acute sinusitis IMPRESSION: Right frontal scalp hematoma. Otherwise normal noncontrast head CT for age. ACT 112: Negative or not required by law. Electronically signed by: Tin Rincon M.D. 04/14/2019 6:42 AM
--- NOTE | 2019-04-14 06:45 | CT Scan Report ---
CT OF THE CERVICAL SPINE CLINICAL HISTORY: Neck pain status post trauma COMPARISON STUDY: No previous studies for comparison. CT DOSE: TECHNIQUE: CT scan of the cervical spine was performed from the skull base to the thoracic inlet. Tamar ges are reviewed in the axial, sagittal, and coronal planes. IV contrast was not administered for thi s examination. A dose lowering technique was utilized adhering to the principles of ALARA. FINDINGS: The visualized portions of the lung apices reveal no evidence of pneumothorax. The prevertebral soft tissues are normal. No fractures or subluxations are visualized. There are multilevel degenerative changes IMPRESSION: No evidence of acute fracture or traumatic subluxation. ACT 112: Negative or not required by law. Electronically signed by: Tin Rincon M.D. 04/14/2019 6:44 AM
--- NOTE | 2019-04-14 06:47 | XRay Report ---
XR hand LT min 3V routine CLINICAL HISTORY: Left hand pain status post trauma COMPARISON: None. DISCUSSION: No acute fractures or dislocations are visualized. Positioning on the AP view is somewhat limited as the patient was unable to fully straighten her fingers. IMPRESSION: No acute fractures or dislocations identified. ACT 112: Negative or not required by law. Electronically signed by: Tin Rincon M.D. 04/14/2019 6:45 AM
[2019-04-14] MEDS: BuPROPion SR 100 MG TABCR PO SCH (07:41)
[2019-04-14] MEDS: GABAPENTIN 600 MG TAB PO SCH ×3 (07:41→20:54)
[2019-04-14] MEDS: CITALOPRAM 20 MG TAB PO SCH (07:41)
[2019-04-14] MEDS: lamoTRIgine 100 MG TAB PO SCH (07:42)
--- NOTE | 2019-04-14 08:29 | Neurology Consultation ---
Date of Consultation April 14, 2019 Assessment & Plan (1) Migraine: (2) Anxiety and depression: (3) Concussion: Anita Galloway is a 49 yo woman w/ PMH of migraine, anxiety/depression and GERD who p/t [facility] after GLF a/w head injury. # Post-traumatic headache: - would give IVFs and the following headache cocktail: toradol/reglan/benadryl q8h scheduled, magnesium 1g q12h, depakote 500mg IV q8h to try and help break headache - would continue to re-assure her that post-traumatic headaches usually improve over the first month or so. Her headache may or may not completely go away with these medications and headache pain should not keep her in the hospital. Discus sed with her that unless something abnormal is found on her MRI, she is safe to go home from a neurological standpoint and should manage her headache at home. - she should follow up in neurology outpatient in 2-4 weeks for post-traumatic headache management - she is already on multiple psychotropic medications at home (some which can actually worsen headaches); would continue these for now and we can discuss with her provider if any of those need changed - encourage her to limit OTC medication use to no more than 3 times per week to prevent rebound headaches (on discharge) - would obtain MRI brain w/ and w/o contrast to r/o intracranial hypotension; if intracranial hypotension signs noted, would recommend conservative measures with IVFs/caffeinated beverages/rest/lying flat for several days and referral for blood patch if no improvement after 1 week of conservative treatment # Gait imbalance: pt would not get out of bed to evaluate (would only sit up briefly before lying back down) so difficult to assess. No dysmetria or ataxia noted on observed movements in any extremity. - PT/OT evaluation - MRI brain as above Thank you for this interesting consult. Please call or text with questions. History of Present Illness Attending Physician: Laith Maddox DO History of Present Illness Anita Galloway is a 49 yo woman w/ PMH of migraine, anxiety/depression and GERD who p/t [facility] after GLF a/w head injury. Denies LoC but noted near immediate onset of headache a/w photophobia and phonophobia. She was also noted to have gait imbalance. In the ED, vitals were unremarkable. Labs including CBC/BMP were also unremarkable with Plts 283, Cr 1.00, glucose 87, negative alcohol level. CT of the cervical spine shows no acute fracture or traumatic subluxation mild multilevel degenerative changes noted. Independent review of CT head shows no hemorrhage or hypodensity, nor skull fracture. She was admitted overnight due to gait imbalance and inability to ambulate independently. On examination this morning, she reports ongoing headache. Headache is described as holocephalic a/w nausea, photophobia and phonophobia. Severity is 6/10. She has been receiving prn IV Tylenol 1 g every 8 hours and Benadryl 25 mg IV every 4 hours as needed. She did receive fentanyl 75 mcg, Dilaudid 1 mg and Toradol 30 mg IV in the ED without any improvement in her headache. Exam is notable for a right black eye with small bruise on her right forehead. She denies any assault causing symptoms. Headache is worse when she is sitting up in bed, better with lying down. She also reports associated dizziness that started around the time as her headache. Previous migraines are unilateral, throbbing, a/w nausea, vomiting and photo/phonophobia. Severity will be 10/10 and can last entire day to days. Uses tylenol OTC with relief sometimes. ROS+ for full body sensation of "bee stinging" her that is currently being worked up (started on gabapentin for this), depression/anxiety, and 1 year h/o right hand shaking/tremor that has been worsening (functional/distractible on exam). She was not willing to get out of bed for further examination given headache and dizziness. Allergies Allergy/AdvReac Type Severity Reaction Status Date / Time velez Allergy Mild itchy Verified 04/14/19 02:16 throat kiwi Allergy Mild itchy Verified 04/14/19 02:16 throat nut - unspecified Allergy Mild itchy Verified 04/14/19 02:16 throat pollen extracts Allergy Mild ITCHING, Verified 04/14/19 02:16 SNEEZING No Known Drug Allergies Allergy Unknown Verified 04/14/19 02:16 Home Medications Home Medications Medication Instructions Recorded Confirmed Type Prilosec OTC 20 mg PO DAILY PRN 07/18/18 04/14/19 History bupropion HCl 100 mg PO QPM 07/18/18 04/14/19 History bupropion HCl 200 mg PO QAM 07/18/18 04/14/19 History lamotrigine [Lamictal] 100 mg PO QAM 07/18/18 04/14/19 History cyclobenzaprine 10 mg tablet 10 mg PO TID PRN #20 tab 12/18/18 04/14/19 Rx citalopram 60 mg PO DAILY 04/14/19 04/14/19 History gabapentin 600 mg PO TID 04/14/19 04/14/19 History lamotrigine 50 mg PO QPM 04/14/19 04/14/19 History Patient History Medical History Anxiety Anxiety and depression Depression GERD (gastroesophageal reflux disease) Migraine Temporomandibular joint disorder BILAT-CLICKS AND POPS LOCKED 5 YRS AGO Surgical History History of arthroscopy of left knee x3 History of section x3 History of cholecystectomy History of dilatation and curettage History of esophagogastroduodenoscopy (EGD) History of hysterectomy History of strabismus surgery left eye x2 History of total left knee replacement (TKR) History of wisdom tooth extraction Family History Son Family history of reaction to anesthesia "at 5yrs old when having a brain shunt placed, went into a coma for 7 days after, not sure if from anesthesia or actual surgery"--he no longer gets inhaled anesthesia and now does ok with anesthesia/sx Grandfather (Paternal) Family history of diabetes mellitus Grandmother (Paternal) Family history of diabetes mellitus Social History Preferred Language: [place] Communication Ability: Effective Visual Impairment: Limited Hearing Ability: Hard of Hearing Alcoholism Worker Required: No Beliefs That Will Affect Care: None marital status: Single Current Living Situation: Family Current Living Situation Comment: Lives with 3 kids Feels Safe at Home: Yes Smoking Status: Never smoker Second Hand Exposure: No ; Hx Alcohol Use: No Hx Substance Use: No Dental Care, Regularly: Yes Physical Activity Frequency: Daily Review of Systems Review of Systems: 14 point review of systems completed and negative except as in HPI. Physical Exam Physical Exam: General Exam: GEN: NAD, lying in bed with clothe over her eyes. HEENT: No conjunctival injection, no rhinorrhea, right black eye. CV: RRR, no peripheral edema PULM: Nonlabored respirations on room air. Neuro Exam: MS: Awake and Alert. Oriented to person, place, and date. Speech fluent and appropriate without dysarthria or paraphasic errors. Language intact including naming, comprehension, repetition. Cognition and memory grossly intact. Attention intact. No neglect. CN: Visual lindsey full in left eye (difficult to test in right eye as her eyelid was swollen 2/2 bruise and she kept closing that eye). No extinction to double simultaneous stimuli. Patient would not participate in fundoscopic exam as light was involved. Left pupil round, reactive; would not keep eyes open to evaluate right pupil given light. EOMI without nystagmus. Facial sensation intact to LT. Facial muscles full and symmetric. Hearing intact to conversation. Uvula midline with symmetric palatal elevation. Shoulder shrug normal. Tongue midline. MOTOR: Normal bulk and tone. No pronator drift. BUE strength 5/5 at deltoids, biceps, triceps, wrist flexors and extensors, and finger flexors bilaterally. BLE strength 5/5 at iliopsoas, hamstrings, quadriceps, tibialis anterior, and gastrocnemius bilaterally. Had a functional, variable frequency, distractible tremor in her right hand throughout the examination. REFLEXES: 1+ at biceps, triceps, brachioradialis, 1+ patella and trace Achilles bilaterally. Flexor plantar responses bilaterally. SENSORY: Intact to LT without extinction to double simultaneous stimuli. Vibration and temperature intact throughout. COORDINATION: No dysmetria or ataxia on [id number] bilaterally. Normal Phani bilaterally. GAIT: Deferred as pt would not get out of bed for examination Results & Data Vital Signs (Past 12 Hours) Vital Signs Temp Pulse Pulse Resp BP BP BP 04/14/19 07:34 36.7 C 82 22 146/76 H 04/14/19 05:45 36.9 C 75 20 125/104 H 04/14/19 05:33 93 H 18 144/87 H 04/14/19 05:22 94 H 18 161/95 H 04/14/19 03:13 78 18 154/89 H 04/14/19 01:54 37 C 96 H 22 119/69 Pulse Ox 04/14/19 07:34 96 04/14/19 05:45 96 04/14/19 05:33 95 04/14/19 05:22 95 04/14/19 03:13 95 04/14/19 01:54 98 Laboratory Results Short CBC 04/14/19 Range/Units 02:20 WBC 8.03 (4.8-10.8) K/uL Hgb 13.1 (12.0-16.0) g/dL Hct 39.9 (37-47) % Plt Count 283 (130-400) K/uL BMP 04/14/19 02:20 Sodium 137 Potassium 4.3 Chloride 108 H Carbon Dioxide 25 BUN 13 Creatinine 1.00 Glucose 87 Calcium 8.6 PG Care Time/CCT Total # of Minutes Spent Total Time Spent with Patient: Total time spent is greater than 50% in coordination of care (as documented) at patient's floor/unit and/or counseling patient: (1) Concussion Encounter type: initial encounter Loss of consciousness presence/duration: without LOC Qualified Code(s): S06.0X0A - Concussion without loss of consciousness, initial encounter
--- NOTE | 2019-04-14 11:21 | Hospitalist Progress Note ---
Date of Service April 14, 2019 Assessment & Plan (1) Post-concussion headache: Postconcussive headache/post closed head injury/ataxia, ambulatory dysfunction- Per neurology recommendations, patient will be on [id number] Toradol, Reglan, and Benadryl. Will also have magnesium and Depakote added as well. Patient tells me that typically Tylenol works well as monotherapy for headaches but only fits call early, and she feels that this is now too late. Neurology also recommended an MRI of the brain which we will order. (2) Closed head injury: CT of head negative for acute injury. (3) Ataxia: Ataxia/ambulatory dysfunction- Nurses report patient had difficulty walking because she was trying to keep a towel over her head while she was walking. Patient does have chronic sensory disturbance for which she takes medications, that may be aggravated. Will monitor for improvement in symptoms after her headache improves. (4) Anxiety and depression: Anxiety and depression/migraine- Continue her usual regimen: Bupropion, citalopram, gabapentin, lamotrigine. Consult neurology Subjective Patient sitting in dark room with a cloth over her face. She is slow to answer questions but appears to be neurologically intact. Patient planes of continued headache. She was given Tylenol last time she does not feel to be very effective is wondering if she can have other medications. I did see the neurology evaluation with recommendations for migraine cocktail which is not yet been administered. Physical Exam Constitutional: + acute distress (Mild distress secondary to ongoing headache) and cooperative Neck: trachea midline, no thyromegaly Respiratory: normal respiratory effort Auscultation: lungs clear to ausc ultation bilaterally; no crackles, no rales, no rhonchi and no wheezes Cardiovascular: Rate/Rhythm: regular rate and regular rhythm Heart Sounds: normal S1 and normal S2 Gastrointestinal (Abdomen): Inspection/Auscultation: abdomen normal to inspection Percussion/Palpation: abdomen soft; abdomen nontender, no guarding, abdomen not rigid and no hepatosplenomegaly Skin: no rashes, warm and dry Results & Data Vital Signs (Past 12 Hours) Vital Signs Temp Pulse Pulse Resp BP BP BP 04/14/19 07:34 36.7 C 82 22 146/76 H 04/14/19 05:45 36.9 C 75 20 125/104 H 04/14/19 05:33 93 H 18 144/87 H 04/14/19 05:22 94 H 18 161/95 H 04/14/19 03:13 78 18 154/89 H 04/14/19 01:54 37 C 96 H 22 119/69 Pulse Ox 04/14/19 07:34 96 04/14/19 05:45 96 04/14/19 05:33 95 04/14/19 05:22 95 04/14/19 03:13 95 04/14/19 01:54 98 PG Care Time/CCT Total # of Minutes Spent Total Time Spent with Patient: Total time spent is greater than 50% in coord ination of care (as documented) at patient's floor/unit and/or counseling patient: (1) Closed head injury Encounter type: initial encounter Qualified Code(s): S09.90XA - Unspecified injury of head, initial encounter
[2019-04-14] MEDS ORDERED: KETOROLAC 30 MG/ML VIAL IV PRN (11:27)
[2019-04-14] MEDS ORDERED: KETOROLAC 30 MG/ML VIAL ONE (11:42)
--- NOTE | 2019-04-14 14:15 | Magnetic Resonance Report ---
MRI OF THE BRAIN WITHOUT CONTRAST CLINICAL HISTORY: headache, s/p fall DIZZINESS, INABILITY TO AMBULATE. COMPARISON STUDY: Noncontrast head CT dated 04/14/2019 FINDINGS: Sagittal T1, axial diffusion, proton density and T2 weighted axial, coronal FLAIR, and axial T1-weigh jett images were acquired. No intra or extra-axial mass lesions are visualized Axial diffusion-weighted images reveal no evidence of acute or subacute infarction. There is no evidence of ventricular dilatation. Proton density T2-weighted and FLAIR images reveal no significant intraparenchymal signal abnormaliti es. There are no abnormal flow voids. The study is mildly limited from technical standpoint due to patient motion artifact IMPRESSION: 1. No acute intracranial findings 2. No evidence of acute or subacute infarction 3. No evidence of intracranial mass 4. No MR evidence of hemorrhage ACT 112: Negative or not required by law. Electronically signed by: Tin Rincon M.D. 04/14/2019 2:14 PM
[2019-04-14] MEDS: DiphenhydrAMINE HCL 50 MG/ML VIAL IV SCH ×2 (14:29→21:38)
[2019-04-14] MEDS: MAGNESIUM SULFATE / D5W 1 GM/100 ML BAG IV SCH ×2 (14:29→20:54)
[2019-04-14] MEDS: METOCLOPRAMIDE HCL INJ 5 MG/ML 2 ML VIAL IV SCH ×2 (14:29→20:53)
[2019-04-14] MEDS: VALPROATE SOD 500 MG in DEXTROSE 5% 50 ML IV SCH ×2 (15:49→21:38)
[2019-04-14] MEDS: lamoTRIgine 25 MG TAB PO SCH (20:54)
[2019-04-14] MEDS: buPROPion HCl 100 MG TABLET PO SCH (20:54)
[2019-04-15] MEDS: METOCLOPRAMIDE HCL INJ 5 MG/ML 2 ML VIAL IV SCH ×5 (01:47→20:24)
[2019-04-15] MEDS: VALPROATE SOD 500 MG in DEXTROSE 5% 50 ML IV SCH ×2 (05:04→13:17)
[2019-04-15] MEDS: DiphenhydrAMINE HCL 50 MG/ML VIAL IV SCH ×2 (05:04→13:17)
[2019-04-15 06:36] LABS: Basophils # (auto) 0.02 K/uL (0-0.2); Basophils % (auto) 0.4 %; Eosinophils # (auto) 0.13 K/uL (0-0.5); Eosinophils % (auto) 2.8 %; Hematocrit (blood only) 36.2 % (37-47); Hemoglobin 11.6 g/dL (12.0-16.0); Immature Granulocytes # (auto) 0.01 K/uL (0.00-0.02); Immature Granulocytes % (auto) 0.2 %; Lymphocytes # (auto) 1.35 K/uL (1.2-3.4); Lymphocytes % (auto) 29.4 %; Mean Corpuscular Hemoglobin 31.6 pg (25-34); Mean Corpuscular Volume 98.6 fL (80-100); Mean Platelet Volume 10.1 fL (7.4-10.4); Monocytes # (auto) 0.42 K/uL (0.11-0.59); Monocytes % (auto) 9.2 %; Neutrophils # (auto) 2.66 K/uL (1.4-6.5); Platelet Count 200 K/uL (130-400); RDW Coefficient of Variation 14.8 % (11.5-14.5); RDW Standard Deviation 52.7 fL (36.4-46.3); Red Blood Count 3.67 M/uL (4.2-5.4); White Blood Count 4.59 K/uL (4.8-10.8)
[2019-04-15 07:20] LABS: BUN Creatinine Ratio 9.1 (10-20); Blood Urea Nitrogen 8 mg/dl (7-18); Calcium 7.9 mg/dl (8.5-10.1); Carbon Dioxide 25 mmol/L (21-32); Chloride 109 mmol/L (98-107); Est GFR (Non-African American) 82.9; Glucose 80 mg/dl (70-99); Magnesium 2.5 mg/dl (1.8-2.4); Potassium 3.9 mmol/L (3.5-5.1); Sodium 140 mmol/L (136-145)
[2019-04-15] MEDS: CITALOPRAM 20 MG TAB PO SCH (09:21)
[2019-04-15] MEDS: BuPROPion SR 100 MG TABCR PO SCH (09:21)
[2019-04-15] MEDS: GABAPENTIN 600 MG TAB PO SCH ×3 (09:21→20:25)
[2019-04-15] MEDS: lamoTRIgine 100 MG TAB PO SCH (09:21)
[2019-04-15] MEDS: MAGNESIUM SULFATE / D5W 1 GM/100 ML BAG IV SCH ×3 (09:21→20:23)
[2019-04-15] MEDS: ACETAMINOPHEN 325 MG TAB PO PRN ×2 (09:33→14:06)
[2019-04-15] MEDS: lamoTRIgine 25 MG TAB PO SCH (20:24)
[2019-04-15] MEDS: buPROPion HCl 100 MG TABLET PO SCH (20:26)
[2019-04-15] MEDS ORDERED: Nursing to Pharmacy Communication ONE (21:23)
--- NOTE | 2019-04-15 22:08 | Hospitalist Progress Note ---
Date of Service April 15, 2019 Assessment & Plan (1) Post-concussion headache: Postconcussive headache/post closed head injury/ataxia, ambulatory dysfunction- Per neurology recommendations, patient will be on [id number] Toradol, Reglan, and Benadryl. Will also have magnesium and Depakote added as well. Patient tells me that typically Tylenol works well as monotherapy for headaches but only fits call early, and she feels that this is now too late. Neurology also recommended an MRI of the brain which we will order. (2) Closed head injury: CT of head negative for acute injury. (3) Ataxia: Ataxia/ambulatory dysfunction- Nurses report patient had difficulty walking because she was trying to keep a towel over her head while she was walking. Patient does have chronic sensory disturbance for which she takes medications, that may be aggravated. Will monitor for improvement in symptoms after her headache improves. (4) Anxiety and depression: Anxiety and depression/migraine- Continue her usual regimen: Bupropion, citalopram, gabapentin, lamotrigine. Consult neurology Results & Data Vital Signs (Past 12 Hours) Vital Signs Temp Pulse Resp BP BP Pulse Ox 04/15/19 15:56 36.8 C 71 16 152/88 H 133/84 95 04/15/19 15:10 36.8 C 71 16 152/88 H 95 PG Care Time/CCT Total # of Minutes Spent Total Time Spent with Patient: Total time spent is greater than 50% in coordination of care (as documented) at patient's floor/unit and/or counseling patient: (1) Closed head injury Encounter type: initial encounter Qualified Code(s): S09.90XA - Unspecified injury of head, initial encounter
--- NOTE | 2019-04-16 08:58 | Discharge Summary ---
Date of Service April 15, 2019 Admission HPI Per Admitting Provider The patient is a 49-year-old female with a past medical history including anxiety and depression, muscle spasm, and GERD. She presents to the emergency department with right-sided headache and nausea after she slipped on the wet ground and tripped over a curb, hitting the right side of her head. She denies loss of consciousness or vision change. She has chronic tinnitus, and chronic numbness/tingling in hands and feet. Principal Diagnosis post concussion headache Discharge Exam Constitutional: face covered with towel and cooperative Neck: trachea midline, no thyromegaly Respiratory: normal respiratory effort Auscultation: lungs clear to auscultation bilaterally; no crackles, no rales, no rhonchi and no wheezes Cardiovascular: Rate/Rhythm: regular rate and regular rhythm Heart Sounds: normal S1 and normal S2 Gastrointestinal (Abdomen): Inspection/Auscultation: abdomen normal to inspection Percussion/Palpation: abdomen soft; abdomen nontender, no guarding, abdomen not rigid and no hepatosplenomegaly Skin: no rashes, warm and dry Discharge Data Allergies Allergy/AdvReac Type Severity Reaction Status Date / Time velez Allergy Mild itchy Verified 04/14/19 02:16 throat kiwi Allergy Mild itchy Verified 04/14/19 02:16 throat nut - unspecified Allergy Mild itchy Verified 04/14/19 02:16 throat pollen extracts Allergy Mild ITCHING, Verified 04/14/19 02:16 SNEEZING No Known Drug Allergies Allergy Unknown Verified 04/14/19 02:16 Consultations 04/14/19 04:23 ED Decision to Admit Stat 04/14/19 06:00 Consult Case Management - Discharge Planning Routine Consult Neurology Routine Ordered Studies 04/14/19 02:10 CT cervical spine wo con Urgent CT head/brain wo con Urgent 04/14/19 11:25 MR brain wo con Routine Hospital Course (1) Post-concussion headache: Postconcussive headache/post closed head injury/ataxia, ambulatory dysfunction- Initially treated per neurology recommendations, patient will be on [id number] Toradol, Reglan, and Benadryl. Will also have magnesium and Depakote added as well. Patient tells me that typically Tylenol works well as monotherapy for headaches but only fits call early, and she feels that this is now too late. Neurology also recommended an MRI of the brain which was negative. Patient will be discharged after being reassured that she had a concussion. He symptoms should improve with each day. Patient did report improvement in regards to day of discharge from first day of symptoms. Patient will be home and not work for the rest of the week. Patient should not partake in activities that worsen her symptoms such as screeen time. She can gradually increase her activity with the threshold of stopping being a worsening of her symptoms. Recommended sunglasses even at home if light is bothering patient. In regards to her headache, will recommend prednisone taper, tylenol and magnesium and riboflavin. will f/u with PCP and Neurology. (2) Closed head injury: CT of head negative for acute injury. (3) Ataxia: Ataxia/ambulatory dysfunction- Nurses report patient had difficulty walking because she was trying to keep a towel over her head while she was walking. Patient does have chronic sensory disturbance for which she takes medications, that may be aggravated. Will monitor for improvement in symptoms after her headache improves. (4) Anxiety and depression: Anxiety and depression/migraine- Continue her usual regimen: Bupropion, citalopram, gabapentin, lamotrigine. Consult neurology Total Time Total Time Spent Total Time Spent (In Minutes): 32 Total Time Includes: Examination of the Patient, Discharge Planning and Medication Reconciliation Discharge Plan Discharge Items Patient Disposition: Home - Self-Care Reason For Visit: POST CONCUSSION SYNDROME, HEADACHE POST FALL Discharge Diagnosis: Post concussive headache Activity: Resume your previous activity Non-emergency contact: Primary Care Provider Call non-emergency contact if: you have any medication questions Follow-up/Referrals: Rosetta Santana MD [Primary Care Provider] - 04/22/19 2:30 pm (Please, follow up at Dr. Rivas's office with her associate, Samantha Morel PA-C, on MondayApril 22 at 2:30 pm. *If you need to change this appointment, call their office at [phone].) Anastasiia Dunn MD [Physician] - 04/30/19 11:15 am (Please, follow up at [facility] Neurology Office with Dr. Dunn on MondayApril 30 at 11:30 am (arrive 11:15 am). *The office is located at [address] [place] [address] in [place]. If you need to change this appointment, call the office at [phone].) Diet: Regular Addtl Attending Provider Instructions: - Getting plenty of rest and sleep helps the brain to heal. Do not try to do too much too fast. As you start to feel better, you can slowly and gradually return to your usual routine. Here are some other tips to help you get better: - Avoid activities that are physically demanding (e.g., sports, heavy housecleaning, exercising) or require a lot of thinking or concentration (e.g., working on the computer, playing video games). - Ignoring your symptoms and toughing it out often makes symptoms worse. - Ask your primary care provider at your next appointment when you can safely drive a car, ride a bike, or operate heavy equipment. - Do not drink alcohol. - Limit screen time: including cell phone use, computer and Television. An initial period of mental and physical rest, described as brief. For adults, the recommendation is one to two days. You already had this as you were in the hospital fro about 2 days. Will have you followup with PCP and Neurologist in about 1-2 weeks. Use tylenol acetaminophen for pain (do no use any NSAIDs: examples are: motrin (ibuprofen), aleve (naprosyn) Pending Studies at Discharge: No Stand-Alone Forms: My [facility] [employer], Smoking Cessation Medications and DC Order Prescriptions: New magnesium oxide 250 mg magnesium tablet 250 mg PO BID Qty: 60 RF: 0 riboflavin (vitamin B2) 400 mg tablet 400 mg PO DAILY Qty: 30 RF: 0 prednisone 10 mg tablet 10 mg PO UD Qty: 20 RF: 0 acetaminophen [Mapap (acetaminophen)] 325 mg Tablet 650 mg PO Q4H PRN (Reason: headache) Qty: 60 RF: 0 Continued cyclobenzaprine 10 mg tablet 10 mg PO TID PRN (Reason: muscle spasm) Qty: 20 RF: 0 bupropion HCl 100 mg Tablet 100 mg PO QPM RF: 0 lamotrigine [Lamictal] 100 mg Tablet 100 mg PO QAM RF: 0 bupropion HCl 200 mg Tablet Sustained-Release 12 Hr 200 mg PO QAM RF: 0 Prilosec OTC 20 mg Tablet,Delayed Release (Dr/Ec) 20 mg PO DAILY PRN (Reason: Acid Reflux) RF: 0 lamotrigine 100 mg tablet 50 mg PO QPM RF: 0 citalopram 40 mg tablet 60 mg PO DAILY RF: 0 gabapentin 600 mg tablet 600 mg PO TID RF: 0 Discharge Orders: Discharge Order (Routine); Ordered 04/15/19 Ordered By: Dannie Cerna Admission Data Admit Date/Time: 04/14/19 05:09 Attending Provider: Dannie Cerna Admit Provider: Ras Mejia Primary Care Provider: Rosetta Santana V. Other Providers: Ras Mejia ; José Miguel Rice Other Interventions: Discharge Summary Assessment (RN) Last Done: 04/15/19 15:56 DC Date/Time DO NOT enter until pt leaves facility: 04/15/19 22:15
== END 2019-04-15 22:15 | disposition home or self-care (01) ==
LOC: 3W 01:51 → ED 01:51 → SUATTDRO 05:09 → 3W 05:33

== ENCOUNTER 2023-06-07 08:19 | Observation (INO) ==
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
--- NOTE | 2023-05-25 08:06 | Anesthesiology Consultation ---
Date of Service May 25, 2023 Assessment & Plan (1) Encounter for pre-operative examination: Chart Review Chart Review: Acceptable Risk for Surgery (pending PCP appt 05/30/23) and Patient NOT seen in Pre Admission Testing - Awaiting PCP appt 05/30/23 ([place]) - Patient is NOT an OPJ canddiate -Infectious Disease screening: Per PAT nursing assessment on 05/24/23. Patient tested positive for influenza A on 05/11/23 (Covid negative)- has mild residual fatigue, SOB (improved from previous)- follow up with PCP for further evaluation prior to surgery. No known infectious disease contacts in past 10 days or current infectious disease symptoms. No recent travel outside the country. - S/P Left TKA (09/16/14): Grade view 1, MAC#3, ETT 7.5 at [facility] > surgery done under [facility]. Per anesthesia consult note from 2014, patient nervous re: spinal anesthesia indicating experience with painful spinal insertion with c/s and concern with lumbar DDD. Patient requesting upcoming right TKA done under [facility] again if possible per 03/29/23 anesthesia consultation* History Surgery Operation Date: 06/07/23 10:30 Proposed Procedures p Right Total Knee Arthroplasty - Jeffery Burch, Height/Weight Height: 5 ft 4 in Weight: 127.006 kg Allergies Allergy/AdvReac Type Severity Reaction Status Date / Time velez Allergy Unknown itchy Verified 05/24/23 15:51 throat eggplant Allergy Unknown itchy Verified 05/24/23 15:51 throat kiwi Allergy Unknown itchy Verified 05/24/23 15:51 throat clarice Allergy Unknown itchy Verified 05/24/23 15:51 throat No Known Drug Allergies Allergy Unknown Unknown Verified 05/24/23 15:51 nut - unspecified Allergy Unknown itchy Verified 05/24/23 15:51 throat pineapple Allergy Unknown itchy Verified 05/24/23 15:51 throat pollen extracts Allergy Unknown itching, Verified 05/24/23 15:51 sneezing hair product Allergy Unknown face and Uncoded 05/24/23 15:51 eye swelling Medications Home Medications Medication Instructions Recorded Confirmed Last Taken acetaminophen 500 mg tablet 0 mg PO Q6H PRN Fever Or Pain 03/13/20 05/24/23 05/09/23 17:00 (Acetaminophen Extra Strength) diphenhydramine HCl 25 mg capsule 50 mg PO TID allergies 12/28/23 02/21/24 02/06/24 20:00 (Benadryl) benzonatate 200 mg capsule 200 mg PO BID PRN cough #14 caps 05/11/23 05/24/23 Unknown gabapentin 600 mg tablet 1,200 mg PO TID 05/11/23 05/24/23 Unknown albuterol sulfate 90 mcg/actuation 1 inh inhalation QID PRN illness 05/24/23 05/24/23 Unknown aerosol inhaler Past Medical History Medical History Anxiety and depression hx Environmental and seasonal allergies Takes Benadryl daily for itching Family history of reaction to anesthesia son - please see section under family hx for detailed note. GERD (gastroesophageal reflux disease) History of COVID-2020- superficial blood clots > "resolved" Influenza A dx on ed visit 05/11/23 - starting to feel better as of 05/22/23. Current s/s: fatigue, sob has improved with activity/recovers more quickly with sob. Pt plans to call for pcp clearance appointment 05/24 or 05/25/23. Migraine Temporomandibular joint disorder B/L, + clicking and popping Thrombophlebitis arm B/L (after having covid in 2020), treated w/Xarelto Past Family History Family History Son Family history of reaction to anesthesia Son had brain shunt revision age 5 (went into a coma for 7 days, limited details if surgical or anesthesia complication). She states he has had multiple surgeries/anesthesia since without issue. No similar/personal history of anesthesia issues for patient/other family members. Grandfather (Paternal) Family history of diabetes mellitus Grandmother (Paternal) Family history of diabetes mellitus Denies family history of Colon cancer Ovarian cancer Prostate cancer Myocardial infarction Breast cancer Past Surgical History Surgical History History of arthroscopy of left knee x3 History of section x3 History of cholecystectomy History of dilatation and curettage History of esophagogastroduodenoscopy (EGD) pt doesn't remember this. History of hysterectomy History of strabismus surgery left eye x2 History of total left knee replacement (TKR) History of wisdom tooth extraction Social History Smoking Status: Never smoker Do You Dip or Chew Tobacco: No Hx Alcohol Use: No Alcohol type: beer alcohol intake frequency: holidays/special occasions only Hx Substance Use: No substance use type: does not use Lab Results Anesthesia Preop Results Results Anesthesia Widget: WBC 4.88 K/ul (4.8-10.8) 05/11/23 Hgb 14.3 g/dl (12.0-16.0) 05/11/23 Hct 45.0 % (37.0-47.0) 05/11/23 Plt 119 K/uL (130-400) L 05/11/23 Na 143 mmol/L (136-145) 05/11/23 K 3.6 mmol/L (3.5-5.1) 05/11/23 Cl 105 mmol/L (98-107) 05/11/23 CO2 26 mmol/L (21-32) 05/11/23 BUN 10 mg/dl (6-23) 05/11/23 Creat 1.17 mg/dl (0.6-1.2) 05/11/23 Glucose Level 114 mg/dl (70-99(Fasting)) H 05/11/23 PT 10.9 Seconds (9.0-12.0) 03/29/23 PTT 29 Seconds (21-31) 03/29/23 INR 1.0 (0.9-1.1) 03/29/23 HA1c 5.1 % (4.5-5.6) 03/29/23 Blood Type A Positive 05/10/23 Antibody Screen NEGATIVE 05/10/23 Testing Laboratory Results Mild thrombocytopenia- tested positive for the flu at time of labs - will leave to anesthesiologist discretion if repeat CBC with diff needed DOS Coags 03/29/23 WNL- will be 70 days old by DOS- will leave to anesthesiologist discretion if repeat coags needed DOS Electrocardiogram Date: 03/29/23 Findings: + NSR @ (63bpm) and + no change from (September 03, 2014 per cardio ) Chest X-Ray Date: 05/11/23 FINDINGS: An AP, portable, upright chest radiograph is compared to study dated 03/29/2023. The examination is severely degraded by portable technique and patient rotation. The cardiomediastinal silhouette is unremarkable. The lungs and pleural spaces are clear. No pneumothorax is seen. The bony thorax is grossly intact. IMPRESSION: No acute abnormality is identified.
[~2023-06-07 08:19] MED LIST changes: -ASPEC325 PO; +BUPIVACAINE 0.5 % 5 MG/1 ML PF 10ML VIAL ONE; -BUPR-83 PO; -BUPR200T2 PO; -CLC100 PO; -CLX/20 PO; +EPINEPHrine INJ 1 MG/ML AMP ONE; -LAMO1TAB21 PO; -OXYSR10 PO; -PANT1TAB48 PO; -RANI150T3 PO; +ROPIVACAINE 0.5% 5 MG/ML 30 ML VIAL ONE
[2023-06-07] MEDS: GABAPENTIN 900 MG DOSE PO SCH (09:18)
[2023-06-07] MEDS: CeleBREX 200 MG CAP PO SCH (09:18)
[2023-06-07] MEDS: dexAMETHasone**PF** 10 MG/ML VIAL IV SCH (09:19)
[2023-06-07] MEDS: LR 500ML BOLUS, THEN 15ML/HR IV SCH (09:19)
[2023-06-07] MEDS: ACETAMINOPHEN 500 MG TAB PO SCH ×2 (09:19→15:26)
[2023-06-07] MEDS: LR 60ML/HR IV SCH (09:19)
--- NOTE | 2023-06-07 09:41 | History & Physical Bridge Note ---
Date of Service June 07, 2023 History & Physical Bridge Note I have examined the patient, reviewed the History & Physical and in the interval since the performance of the History & Physical I have noted the following changes of clinical significance: no changes noted
[2023-06-07] MEDS ORDERED: LABETALOL HCL IV 5 MG/ML 20ML IV PRN (10:33)
[2023-06-07] MEDS ORDERED: NALOXONE HCL 0.4 MG/1 ML VIAL/CARP IV PRN ×2 (10:33→14:47)
[2023-06-07] MEDS ORDERED: ePHEDrine sulfate 50 MG/ML AMP IV PRN (10:33)
[2023-06-07] MEDS ORDERED: ONDANSETRON INJ 2 MG/ML 2 ML VIAL IV PRN ×2 (10:33→14:47)
[2023-06-07] MEDS ORDERED: PROMETHAZINE HCL 6.25 MG in SODIUM CHLORIDE 0.9% 50 ML IV PRN (10:33)
[2023-06-07] MEDS ORDERED: ATROPINE SULFATE 0.1 MG/ML 10ML SYR IV PRN (10:33)
[2023-06-07] MEDS ORDERED: FLUMAZENIL 0.1 MG/1 ML 10 ML VIAL IV PRN (10:33)
[2023-06-07] MEDS ORDERED: PROPOFOL IV EMULSION 10 MG/ML 20 ML VIAL IV ONE ×2 (10:37→12:08)
[2023-06-07] MEDS ORDERED: SUCCINYLCHOLINE CHLORIDE 20 MG/ML 10 ML VIAL IV ONE (10:41)
[2023-06-07] MEDS ORDERED: fentaNYL citrate PF 100 MCG/2 ML VIAL ONE ×3 (10:42→11:48)
[2023-06-07] MEDS ORDERED: MIDAZOLAM HCL 1 MG/ML 2ML VIAL ONE (10:42)
[2023-06-07] MEDS: TRANEXAMIC ACID 1,000 MG **IV Pre-op IV SCH (10:59)
[2023-06-07] MEDS: ceFAZolin 3000MG 3,000 MG/72.5 ML BAG IV SCH (11:10)
[2023-06-07] MEDS ORDERED: ONDANSETRON INJ 2 MG/ML 2 ML VIAL ONE (11:32)
[2023-06-07] MEDS ORDERED: GLYCOPYRROLATE 0.2 MG/ML VIAL ONE (11:32)
[2023-06-07] MEDS ORDERED: SUGAMMADEX SODIUM 200 MG/2 ML VIAL IV ONE (11:32)
[2023-06-07] MEDS ORDERED: ROCURONIUM BROMIDE 10 MG/ML 5 ML VIAL IV ONE (11:32)
[2023-06-07] MEDS ORDERED: DEXAMETHASONE SOD INJ 4 MG/ML VIAL ONE (11:32)
[2023-06-07] MEDS: ROPIV 0.5% 246mg, Ketorolac 30mg, EPINEPHrine 0.5mg in NSS INFIL SCH (11:41)
[2023-06-07] MEDS ORDERED: HYDROmorphone INJ 2 MG/ML SYR/VIAL ONE (12:23)
[2023-06-07] MEDS: TRANEXAMIC ACID 1,000 MG **IV Intra-op IV SCH (12:35)
--- NOTE | 2023-06-07 12:46 | Operative Report ---
Post Operative Report Pre & Post Diagnosis Operation Date: 06/07/23 10:00 Pre-Op Diagnosis: Osteoarthritis Knee Right morbid obesity BMI 50.4 Post-Op Diagnosis: Osteoarthritis Knee Right morbid obesity BMI 50.4 I identified the patient and participated in the time-out.: Yes Procedure Operation Date: 06/07/23 10:00 Actual Procedures p Right Total Knee Arthroplasty(Right) utilizing Suggs [employer] Nephew journey 2 and en bloc total knee arthroplasty size femur 5 tibia 4 poly 10 patella 29 oval with a 10 x 70 tibial stem- Jeffery Burch DO Surgeon Jeffery Burch DO Mica Miner STEFAN Vazquez Estimated Blood Loss 25 Findings Consistent with Post-Op Diagnosis Patient presents with severe end-stage tricompartmental DJD morbid obesity with eburnated [id number] marginal osteophytes subchondral sclerosis moderate to large effusion Specimens Bone and cartilage Drains Medium bore Hemovac Anesthesia Type MAC Spinal Regional Complications none Disposition Accompanied Patient To Recovery: No Disposition: Recovery Room Indications Patient presents with severe end-stage tricompartmental DJD with eburnated [id number] failed attempted corticosteroid injection viscosupplementation weight loss relative rest activity modification Description of Procedure After proper prepping and draping of the Right lower extremity anterior midline incision was made over the region of the extensor extensor mechanism after meticulous hemostasis was obtained and maintained in subcutaneous tissues a me dial parapatellar incision was made The patella was subluxed lateralward the medial lateral gutter were cleaned from any hypertrophic synovitis and scar tissue of the distal femoral block was placed and the distal femoral osteotomy cut was made subsequently the chamfers anterior and posterior osteotomy cuts were made utilizing the 4-in-1 block the tibia was subsequently subluxed anteriorward medial and ateral meniscal remnants were excised in their entirety remnants of the anterior and posterior cruciate ligaments were excised in their entirety excellent exposure of the proximal tibia was obtained the tibial osteotomy guide was placed on the proximal tibial osteotomy cut was made once again the knee was irrigated with copious amounts of sterile saline solution the patella was subsequently everted lateralward thickened scar tissue around the patella was removed the patella was subsequently cut utilizing a freehand technique and was drilled prepared for final preparation and placement of patella socially flexion-extension gaps were checked and the equal and symmetric trials were placed to the appropriate femoral and tibial trials with poly-spacer being placed for equal flexion and extension gaps and full range of motion including extension to 0 and flexion to 140 the trial components after having been taken to recovery range of motion was subsequently removed meticulous hemostasis was obtained and maintained subsequently a knee block injection of joint cocktail including ropivacaine 0.5% 150 mg. Bupivacaine 0.5% epinephrine 1-200,030 mL's toradol 30 mg dexamethasone 4 mg ketamine 10 mg clonidine 100 micrograms normal saline solution 30 mg was infiltrated into the soft tissues of the posterior knee medial lateral gutters and periosteal synovium special attention was paid to protect neurovascular structures at all times subsequently trial components having been removed the knee was irrigated with sterile saline solution. debris was removed the proximal tibia was subsequently prepared and was made ready for the placement of the tibial component tibial component was also cemented and tamped into position the femoral component was subsequently placed and cemented in the position the patellar component was subsequently cemented in position because hemostasis once again obtained and maintained wound having been thoroughly irrigated with debridement and debridement lavage was performed as well as a medial parapatellar incision closed with #1 Vicryl in interrupted fashion subcutaneous was closed with #2 Vicryl skin was closed with skin clips. PA-C was necessary for prepping and drapping as well as wound closure of deep fascia Sub cutaneous tissue and skin and was necessary for the case. A sterile compressive dressing was placed patient was taken to recovery in stable condition of report dictated by Marcin I attest to the content of the Intraoperative Record and any orders documented therein. Any exceptions are noted below.Due to the complex nature of the procedure, the entire surgery was performed with the operational assistance of STEFAN Vazquez. The cafe assistant, under direct supervision, was involved in the actual performance of all aspects of the surgical procedure including hemostasis, tissue retraction and incision, instrument management, patient positioning, and wound closure.The patient is 133.3 kg with a BMI of]. The patient's habitus did contribute to significant technical difficulty requiring extra time. Additional help was necessary in order to position the patient safely. The use of specialized (longer, deeper) retractors and/or instruments were needed. Due to this, the procedure took 20 minutes longer than the standard total knee arthroplasty." I attest to the content of the Intraoperative Record and any orders documented therein. Any exceptions are noted below.
[2023-06-07] MEDS: fentaNYL citrate PF 100 MCG/2 ML VIAL IV PRN (13:20)
--- NOTE | 2023-06-07 13:36 | Anesthesiology Progress Note ---
Date of Service June 07, 2023 Anesthesia Post Procedure Vital Signs Vital Signs: Temp Pulse Pulse Resp BP Pulse Ox O2 Del Method 06/07/23 13:12 36.9 C 94 H 17 135/94 94 Oxymask 06/07/23 08:55 37.1 C 86 20 131/95 95 Room Air O2 Flow Rate 06/07/23 13:12 5 06/07/23 08:55 Pain Intensity Right Knee: Pain Intensity: 7 Transfer of Care Handoff Completed per policy Notes Mental Status: alert / awake / arousable and participated in evaluation Patient Amnestic to Procedure: Yes Nausea / Vomiting: adequately controlled Pain: adequately controlled Airway Patency, RR, SpO2: stable & adequate BP & HR: stable & adequate Hydration State: stable & adequate Anesthetic Complications: no major complications apparent and Pt Satisfied with anesthetic care
[2023-06-07] MEDS: HYDROmorphone INJ 1 MG/ML SYRINGE IV PRN ×2 (13:41→15:26)
--- NOTE | 2023-06-07 14:09 | XRay Report ---
XR knee RT 1 or 2V routine HISTORY: 53 years-old Female Surgical Post Op right knee arthroplasty COMPARISON: None TECHNIQUE: 2 views of the right knee FINDINGS: Total joint arthroplasty with patellar resurfacing. Anterior midline skin jeffery with expected posto perative soft tissue swelling and deep tissue air with surgical drainage catheter. No acute fracture or expected opaque foreign body. IMPRESSION: Total joint arthroplasty with expected postoperative changes. ACT 112: Negative or not required by law. The above report was generated using voice recognition software. It may contain grammatical, syntax o r spelling errors. Electronically signed by: Pierce Post M.D. 06/07/2023 2:08 PM
--- OUTSIDE RECORDS SUMMARY | 2023-06-07 14:44 | External Medical Summary | Summary of Care ---
Author Name Unknown Organization [facility] Address [address] [place] [address] Phone [phone] Care Team Providers Care Communications Tech Name Role Phone Rosetta Landeros MD Care Provider Reason for Visit * Reason Comments Rash Rash on face for 3 w eeks. Using hydrocortisone but not really working. Encounter Details Date Type Department Care Team (Late st Contact Info) Description 06/06/2023 11:00 AM EST Office Visit Dermatology, Olaf Murray [address] [facility] [address] [id number] Dariela Reeves PA-C [address] [facility] [place] [address] [phone] Perioral dermatitis*; Atopic dermatitis, unspecified type Allergies Active Allergy Reactions Criticality Noted Date Comments Pollen 03/23/2018 Pets,grass,some nuts,bananas kiwis,pineapple,eggplants documented as of this encounter (statuses as of 06/06/2023) Medications Medication Sig Dispensed Refills Start Date End Date Status diphenhydrAMINE HCl 25 MG Oral Capsule (Benadryl Allergy)Indication s:Atopic dermatitis, unspecified type Take 1 Capsule by mouth every 6 hours as needed for Itching. 0 Active metroNIDAZOLE 0.75 % External Cream (MetroCream)Indica tions:Perioral dermatitis Apply to face twice daily for 4 weeks 45 g 1 06/06/2023 Active Gabapentin 600 MG Oral Tablet (Neurontin)Indicat ions:Atopic dermatitis, unspecified type Take 2 tablets three times a day 360 Tablet 2 06/06/2023 Active lamoTRIgine (LAMICTAL) 100 MG Tablet Take 100 mg by mouth daily. 0 06/06/2023 Discontinued (Medication List Clean Up) buPROPion (WELLBUTRIN) 100 MG Tablet Take 100 mg by mouth daily. 2 10/30/2017 06/06/2023 Discontinued (Medication List Clean Up) citalopram (CELEXA) 10 MG Tablet Take 10 mg by mouth daily. 0 06/06/2023 Discontinued (Medication List Clean Up) Gabapentin 600 MG Oral Tablet (Neurontin)Indicat ions:Atopic dermatitis, unspecified type Take 2 tablets three times a day 360 Tablet 2 01/02/2023 06/06/2023 Discontinued (Refill) Nitrofurantoin Monohyd Macro 100 MG Oral Capsule (Macrobid)Indicati ons:Dysuria Take 1 Capsule by mouth in the morning and 1 Capsule before bedtime. Do all this for 7 days. With food until gone. 14 Capsule 0 03/29/2023 06/06/2023 Discontinued (Medication List Clean Up) Sulfamethoxazole-T rimethoprim 800-160 MG Oral Tablet (Bactrim DS)Indications:Acu te UTI Take 1 Tablet by mouth in the morning and 1 Tablet before bedtime. Do all this for 5 days. Until gone. 10 Tablet 0 03/31/2023 06/06/2023 Discontinued (Medication List Clean Up) documented as of this encounter (statuses as of 06/06/2023) Active Problems Problem Noted Date Diagnosed Date Allergic reaction 04/23/2023 Contact dermatitis 04/23/2023 Anxiety and depression 04/23/2023 Depression 04/23/2023 Dyslipidemia 04/23/2023 Eczema 04/23/2023 Elevated fasting blood sugar 04/23/2023 Functional tremor 04/23/2023 Gastroesophageal reflux disease 04/23/2023 FAMIL HEREDIT DIS-MCDK 10/21/2002 RENAL DYSPLASIA- 10/21/2002 PREV C-SECT NOS-ANTEPART (VERTICAL) 06/20/2002 Encounter for supervision of other normal pregna ncy 06/20/2002 Overview: ICD-10 update of inactive term documented as of this encounter (statuses as of 06/06/2023) Social History Tobacco Use Types Packs/Day Years Used Date Smoking Tobacco: Never Smokeless Tobacco: Never Alcohol Use Standard Drinks/Week Comments Yes 0 (1 standard drink = 0.6 oz pur e alcohol) occ Sex and Gender Information Value Date Recorded Sex Assigned at Not on file Gender Identity Not on file Sexual Orientation Not on file Job Start Date Occupation Industry Not on file Not on file Not on file documented as of this encounter Progress Notes * Dairela Reeves PA-C - 06/06/2023 11:00 AM EST SUBJECTIVE: CC: Chief Complaint Patient presents with Rash Rash on face for 3 weeks. Using hydrocortisone but not really working. HPI: Anita Galloway is a 53 year old female who [facility] an 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 Onset 3-4 weeks ago. Denies itchy, burning or tingling. She has been self-treating with Hydrocortisone cream. It has improved since onset and she states today is a good day. She denies changes in skin care, shampoos, conditioners, soaps or perfumes. DERMATOLOGIC PAST MEDICAL HISTORY: Reviewed previous office notes and relevant surgical pathology: History of skin disorders: -Extensive history of atopic dermatitis. Bx 2017 subacute spongiotic mixed infiltrate, DIF negative Current treatment: gabapentin 600mg TID, no SEs noted Past treatments: topicals, NBUVB, dupixent (d/c dupixent due to ineffectiveness 2022) -Suspected allergic contact dermatitis: no-showed past scheduled PATCH testing History of skin cancer: no SOCIAL HISTORY: Not currently working REVIEW OF SYSTEMS: See HPI- all other findings negative Constitutional: (-) fever, chills, sweats, weight loss Skin: (-) no rash or new or changing moles or skin lesions MEDICA TIONS: Current Outpatient Medications Medication Sig Dispense Refill diphenhydrAMINE HCl 25 MG Oral Capsule (Benadryl Allergy) Take 1 Capsule by mouth every 6 hours as needed for Itching. Gabapentin 600 MG Oral Tablet (Neurontin) Take 2 tablets three times a day 360 Tablet 2 No current facility-administered medications for this visit. ALLERG Y: Environmental [pollen] OBJECTIVE: GEN: Healthy, alert, no distress, appears oriented, pleasant, and cooperative. PSYCH: Appropriate mood and affect, alert SKIN: Detailed exam of face was completed and are within normal limits with the following exceptions: 1. [place] papules with scaling in periorally ASSESSMENT/PLAN: Favor perioral dermatitis -Discussed diagnosis and benign condition with patient -Recommend observation vs topical agents -Prescribed Metrocream 0.75% (apply thin layer twice daily after washing) for 4 weeks -Discussed may take up to several weeks for resolution Patient alone today. Follow-up: 6 months for f/u of atopic dermatitis, sooner if no improvement of the above. Photos taken, patient consented to photos taken. Applicable photos (if any) and chart reviewed by Dr. Virgilio Gamble. The patient was encouraged to contact me with any further questions or concerns. Dariela Reeves PA-C 06/06/2023 documented in this encounter Nursing Notes * Shari Ledezma LPN - 06/06/2023 11:16 AM EST Chief Complaint Patient presents with Rash Rash on face for 3 weeks. Using hydrocortisone but not really working. Last visit - 05/26/22 [facility] Ward documented in this encounter Plan of Treatment Upcoming Encounters Date Type Department Care Team (Late st Contact Info) Description 12/07/2023 2:30 PM EDT Office Visit Dermatology, Olaf Murray [address] [place] [address] [address] Anu Garza PA-C [address] [place] [address] [address] Health Maintenance Due Date Last Done Comments Diabetes Screening 1968 Lipid Panel 1968 Depression Screening 1980 Hepatitis C Screening 1986 Hepatitis B (1 of 3 - 19+ 3-dose series) 1987 Cologuard 2013 Colonoscopy 2013 Colorectal Cancer Screening 2013 Fecal Occult Blood Test 2013 Sigmoidoscopy 2013 Zoster Vaccines (1 of 2) 2018 COVID-19 Vaccine ( - 2022-2 4 season) 2022 Influenza Vaccine (FLU shot) (#1) 2022 Mammogram 11/23/2023 11/22/2022, 11/22/2022 DTaP,Tdap,and Td Vaccines (2 - Td or Tdap) 05/11/2028 05/11/2018 Pap Smear Discontinued 05/23/2002, 07/07/2000, 11/25/1999 GARDASIL-HPV IMMUNIZATION SERIES Aged Out No longer eligible based on patient's age to complete this topic MENINGOCOCCAL (MENACTRA/MENVEO) Aged Out No longer eligible based on patient's age to complete this topic Pneumococcal Vaccine: Pediatrics (0 to 5 Years) and At-Risk Patients (6 to 64 Years) Aged Out No longer eligible based on patient's age to complete this topic documented as of this encounter Medical Devices Not on filedocumented as of this encounter Procedures Procedure Name Priority Date/Time Associated Diagnosis Comments DERM EXAM - DERM (IMAGES ONLY, NO REPORT) Routine 06/06/2023 11:31 AM EST Perioral dermatitis documented in this encounter Results * DERM EXAM - DERM (IMAGES ONLY, NO REPORT) (06/06/2023 11:31 AM EST) Narrative Scheduling, Silent - 06/06/2023 11:31 AM EST This is an imaging study not interpreted or resulted by a [employer] or [employer] contracted radiologist. Dariela Reeves PA-C RADIOLOGY ([facility]) documented in this encounter Visit Diagnoses Diagnosis Perioral dermatitis- Primary Rosacea Atopic dermatitis, unspecified type documented in this encounter Care Teams Communications Tech Relationship Specialty Start Date End Date Rosetta Landeros MD [address] [address] PCP - General Internal Medicine 11/09/22 documented as of this encounter
--- OUTSIDE RECORDS SUMMARY | 2023-06-07 14:44 | External Medical Summary | Summary of Care ---
Author Name Unknown Organization [facility] Address [address] [place] [address] Phone [phone] Care Team Providers Care Regulatory Compliance Engineer Name Role Phone Rosetta Landeros MD Care Provider Reason for Visit * Reason Comments Rash Rash on face for 3 w eeks. Using hydrocortisone but not really working. Encounter Details Date Type Department Care Team (Late st Contact Info) Description 06/06/2023 11:00 AM EST Office Visit Dermatology, Olaf Murray [address] [facility] [address] [address] Dariela Reeves PA-C [address] [facility] [place] [address] [address] Perioral dermatitis*; Atopic dermatitis, unspecified type Allergies [...] as of this encounter Progress Notes * Dariela Reeves PA-C - 06/06/2023 11:00 AM EST SUBJECTIVE: CC: Chief Complaint Patient presents with Rash Rash on face for 3 weeks. Using hydrocortisone but not really working. HPI: Anita Galloway is a 53 year old female who is an established patient presenting for facial rash. Last dermatology clinic visit: 06/2022 with Umu [...] normal limits with the following exceptions: 1. [place] papules with scaling in periorally ASSESSMENT/PLAN: Favor [...] questions or concerns. Dariela Reeves PA-C 06/06/2023 * Jamaal Gamble MD - 06/06/2023 11:00 AM EST I have reviewed the relevant notes and photographs taken by Dariela Reeves PA-C. I have reviewed and agree with the assessment and plan. Jamaal Gamble MD documented in this encounter Nursing Notes * Shari Ledezma LPN - 06/06/2023 11:16 AM EST Chief Complaint Patient presents with Rash Rash on face for 3 weeks. Using hydrocortisone but not really working. Last visit - 05/26/22 [facility] Wadr documented in this encounter Plan of Treatment Upcoming Encounters Date Type Department Care Team (Late st Contact Info) Description 12/07/2023 2:30 PM EDT Office Visit Dermatology, Olaf Murray [address] [place] [address] [address] Anu Garza PA-C [address] [place] [address] [address] Health Maintenance Due Date Last Done Comments [...] study not interpreted or resulted by a [employer] or [employer] contracted radiologist. Dariela Reeves PA-C RADIOLOGY ([facility]) documented in this encounter Visit Diagnoses Diagnosis Perioral dermatitis- Primary Rosacea Atopic dermatitis, unspecified type documented in this encounter Care Teams Regulatory Compliance Engineer Relationship Specialty Start Date End Date Rosetta Landeros MD [address] [address] PCP - General Internal Medicine 11/09/22 documented as of this encounter
[2023-06-07] MEDS ORDERED: bisacodyL 10 MG SUPP PR PRN (14:47)
[2023-06-07] MEDS ORDERED: METOCLOPRAMIDE HCL INJ 5 MG/ML 2 ML VIAL IV PRN (14:47)
[2023-06-07] MEDS ORDERED: BENZONATATE 100 MG CAPSULE PO PRN (14:47)
[2023-06-07] MEDS ORDERED: MAGNESIUM HYDROXIDE SUSP 30 ML UDC PO PRN (14:47)
[2023-06-07] MEDS ORDERED: ALBUTEROL HFA 8 GM INHALER INH PRN (14:47)
[2023-06-07] MEDS: ORTHO JOINT ANESTHETIC ONE (15:03)
[2023-06-07] MEDS: SODIUM CHLORIDE 0.9% 1,000 ML IV SCH (15:04)
[2023-06-07] MEDS: diphenhydrAMINE Capsule 25 MG CAP PO SCH (15:26)
[2023-06-07] MEDS: GABAPENTIN 600 MG TAB PO SCH (17:02)
[2023-06-07] MEDS: ceFAZolin 2000MG 2,000 MG/15 ML SYR IV SCH (17:03)
[2023-06-07] MEDS: oxyCODONE HCL IR 5 MG TAB (IMMEDIATE RELEASE) PO PRN (19:38)
[2023-06-07] MEDS: SENNA 8.6 MG TAB PO SCH (20:45)
[2023-06-07] MEDS: FAMOTIDINE 40 MG TABLET PO STA (20:45)
[2023-06-07] MEDS: DOCUSATE SODIUM 100 MG CAP PO SCH (20:45)
[2023-06-08 06:13] LABS: Hematocrit (blood only) 33.8 % (37.0-47.0); Hemoglobin 11.1 g/dl (12.0-16.0); Mean Corpuscular Hemoglobin 33.2 pg (25.0-34.0); Mean Corpuscular Hgb Conc 32.8 g/dL (32.0-36.0); Mean Corpuscular Volume 101.2 fL (80.0-100.0); Mean Platelet Volume 9.6 fL (9.4-12.4); Platelet Count 193 K/uL (130-400); RDW Coefficient of Variation 13.2 % (11.5-14.5); RDW Standard Deviation 49.1 fL (36.4-46.3); Red Blood Count 3.34 M/uL (4.20-5.40); White Blood Count 9.81 K/ul (4.8-10.8)
[2023-06-08 06:37] LABS: BUN Creatinine Ratio 10.9 (10-20); Calcium 8.1 mg/dl (8.6-10.3); Creatinine Clr Calc Pharmacy 78.6 ml/min; Est GFR (African American) 65.5 ml/min; Est GFR (Non-African American) 56.5 ml/min; Potassium 4.2 mmol/L (3.5-5.1)
--- NOTE | 2023-06-08 06:52 | Orthopedic Progress Note ---
Date of Service June 08, 2023 Assessment & Plan (1) History of total right knee replacement: Plan: POD #1 s/p Right TKA pt/ot dvt proph with SYDNEY/SCD/Xarelto x 2 weeks plan for d/c home with HHPT Admission and Anticipated Discharge Date Admission Date: June 07, 2023 Subjective POD #1 s/p Right TKA Review of Systems Constitutional: no fever, no chills and no sweats Respiratory: no cough and no dyspnea Cardiovascular: no chest pain and no dyspnea Gastrointestinal: no abdominal pain, no nausea and no vomiting Physical Exam Physical Exam: Vital Signs Temp 36.8 C 06/08/23 02:57 Pulse 68 06/08/23 02:57 Resp 16 06/08/23 02:57 BP 127/78 06/08/23 02:57 Pulse Ox 96 06/08/23 02:57 O2 Del Method Nasal Cannula 06/08/23 02:57 O2 Flow Rate 2.0 06/08/23 02:57 Intake & Output 06/07/23 06/08/23 06/08/23 18:59 06:59 18:59 Intake Total 1572.5 / 2572.5 1000 / 2572.5 Output Total 30 / 345 315 / 345 Balance 1542.5 / 2227.5 685 / 2227.5 Weight 133.3 kg Intake: IV 272.5 / 1272.5 1000 / 1272.5 Lactated Ringe r's 1,000 ml @ 15 0 / 0 mls/hr IV .Q24 H SANDY Rx#: [id number] Sodium Chlorid e 0.9% 1,000 ml @ 1000 / 1000 100 mls/hr IV .Q10H SANDY Rx#: [id number] Tranexamic Aci d / 0.7% NaCl 1, 200 / 200 000 mg In 100 ml @ 600 mls/hr IV TODAY@0600 SANDY Rx#:[id number] ceFAZolin 3000 MG 3,000 mg In 72 72.5 / 72.5 .5 ml @ 130 ml s/hr IV PREOP SANDY Rx#:[id number] IV Perioperative 1300 / 1300 Output: Urine 300 / 300 Estimated Blood Loss 5 / 5 Drain Output 25 / 40 15 / 40 Right Knee 25 / 40 15 / 40 Other: # Unmeasured Voi ds 1 Weight Measureme nt Method Standing Scale Musculoskeletal: Right Leg: NVDI, calf SNT, negative seth sign. DP palpable, able to wiggle toes/ankle movement without difficulty. dressing clean dry and intact. Results & Data Vital Signs (Past 12 Hours) Vital Signs Temp Pulse Resp BP Pulse Ox O2 Del Method O2 Flow Rate 06/08/23 02:57 36.8 C 68 16 127/78 96 Nasal Cannula 2.0 06/07/23 23:00 37 C 82 16 128/79 96 Nasal Cannula 2 06/07/23 19:15 36.9 C 85 18 136/87 94 Room Air Laboratory Results Laboratory Results WBC 9.81 K/ul (4.8-10.8) 06/08/23 05:38 RBC 3.34 M/uL (4.20-5.40) L 06/08/23 05:38 Hgb 11.1 g/dl (12.0-16.0) L 06/08/23 05:38 Hct 33.8 % (37.0-47.0) L 06/08/23 05:38 MCV 101.2 fL (80.0-100.0) H 06/08/23 05:38 MCH 33.2 pg (25.0-34.0) 06/08/23 05:38 MCHC 32.8 g/dL (32.0-36.0) 06/08/23 05:38 RDW Std Deviation 49.1 fL (36.4-46.3) H 06/08/23 05:38 RDW Coeff of Bob 13.2 % (11.5-14.5) 06/08/23 05:38 Plt Count 193 K/uL (130-400) 06/08/23 05:38 MPV 9.6 fL (9.4-12.4) 06/08/23 05:38 Sodium 137 mmol/L (136-145) 06/08/23 05:38 Potassium 4.2 mmol/L (3.5-5.1) 06/08/23 05:38 Chloride 107 mmol/L (98-107) 06/08/23 05:38 Carbon Dioxide 21 mmol/L (21-32) 06/08/23 05:38 Anion Gap 9 (3-11) 06/08/23 05:38 BUN 12 mg/dl (6-23) 06/08/23 05:38 Creatinine 1.10 mg/dl (0.6-1.2) 06/08/23 05:38 Est Cr Clr Drug Dosing 78.6 ml/min 06/08/23 05:38 Est GFR ( Amer) 65.5 ml/min 06/08/23 05:38 Est GFR (Non-Af Amer) 56.5 ml/min 06/08/23 05:38 BUN/Creatinine Ratio 10.9 (10-20) 06/08/23 05:38 Glucose 132 mg/dl (70-99(Fasting)) H 06/08/23 05:38 Calcium 8.1 mg/dl (8.6-10.3) L 06/08/23 05:38 Impressions Knee X-Ray 06/07/23 11:38 XR knee RT 1 or 2V routine HISTORY: 53 years-old Female Surgical Post Op right knee arthroplasty COMPARISON: None TECHNIQUE: 2 views of the right knee FINDINGS: Total joint arthroplasty with patellar resurfacing. Anterior midline skin jeffery with expected postoperative soft tissue swelling and deep tissue air with surgical drainage catheter. No acute fracture or expected opaque foreign body. IMPRESSION: Total joint arthroplasty with expected postoperative changes. ACT 112: Negative or not required by law. The above report was generated using voice recognition software. It may contain grammatical, syntax or spelling errors. Electronically signed by: Pierce Post M.D. 06/07/2023 2:08 PM
--- NOTE | 2023-06-08 07:08 | Discharge Summary ---
Date of Service date of discharge: June 08, 2023 date of admission: 06/07/23 Admission HPI Per Admitting Provider Anita is a 53-year-old female who presented for preop evaluation prior to right total knee arthroplasty. She has longstanding history of right knee pain which is gradually worsened and is now affecting her daily activities including walking standing using stairs. She is tried oral anti-inflammatories and Tylenol without relief. At this point time wishes to proceed with a right total knee arthroplasty Principal Diagnosis Right knee arthritis Discharge Exam Vital Signs Temp 36.8 C 06/08/23 02:57 Pulse 68 06/08/23 02:57 Resp 16 06/08/23 02:57 BP 127/78 06/08/23 02:57 Pulse Ox 96 06/08/23 02:57 O2 Del Method Nasal Cannula 06/08/23 02:57 O2 Flow Rate 2.0 06/08/23 02:57 Intake & Output 06/07/23 06/08/23 06/08/23 18:59 06:59 18:59 Intake Total 1572.5 / 2572.5 1000 / 2572.5 Output Total 30 / 345 315 / 345 Balance 1542.5 / 2227.5 685 / 2227.5 Weight 133.3 kg Intake: IV 272.5 / 1272.5 1000 / 1272.5 Lactated Ringer's 1,000 ml @ 15 0 / 0 mls/hr IV .Q24H SANDY Rx#: [id number] Sodium Chloride 0.9% 1,000 ml @ 1000 / 1000 100 mls/hr IV .Q10H SANDY Rx#: [id number] Tranexamic Acid / 0.7% NaCl 1, 200 / 200 000 mg In 100 ml @ 600 mls/hr IV TODAY@0600 SANDY Rx#:[id number] ceFAZolin 3000MG 3,000 mg In 72 72.5 / 72.5 .5 ml @ 130 mls/hr IV PREOP SANDY Rx#:[id number] IV Perioperative 1300 / 1300 Output: Urine 300 / 300 Estimated Blood Loss 5 / 5 Drain Output Right Knee Other: # Unmeasured Voids 1 Weight Measurement Method Standing Scale Constitutional WD/WN, vitals as above no acute distress Musculoskeletal Right knee: NVDI, calf SNT, negative seth sign. DP palpable, able to wiggle toes/ankle movement without difficulty. KWAKU dressing clean dry and intact. Discharge Data Allergies Allergy/AdvReac Type Severity Reaction Status Date / Time velez Allergy Unknown itchy Verified 06/02/23 14:42 throat eggplant Allergy Unknown itchy Verified 06/02/23 14:42 throat kiwi Allergy Unknown itchy Verified 06/02/23 14:42 throat clarice Allergy Unknown itchy Verified 06/02/23 14:42 throat No Known Drug Allergies Allergy Unknown Unknown Verified 06/02/23 14:42 nut - unspecified Allergy Unknown itchy Verified 06/02/23 14:42 throat pineapple Allergy Unknown itchy Verified 06/02/23 14:42 throat pollen extracts Allergy Unknown itching, Verified 06/02/23 14:42 sneezing grass pollen Allergy Verified 06/07/23 08:52 hair product Allergy Unknown face and Uncoded 06/02/23 14:42 eye swelling Procedures Performed Operation Date: 06/07/23 10:00 Actual Procedures p Right Total Knee Arthroplasty(Right) - Jeffery Burch DO Ordered Studies 06/07/23 05:00 US - OR guided needle placemen Routine Hospital Course (1) History of total right knee replacement: POD #1 s/p Right TKA pt/ot dvt proph with SYDNEY/SCD/Xarelto x 2 weeks plan for d/c home with HHPT Total Time Total Time Spent Total Time Spent (In Minutes): 20 Discharge Plan Discharge Items Patient Disposition: Home - Home Health Services Reason For Visit: Osteoarthritis Knee Right Discharge Diagnosis: Right total knee replacement Activity: Per Instructions section Lifting: Wait until after follow-up appointment Weightbearing Comment: WBAT with walker Non-emergency contact: Surgeon Call non-emergency contact if: you have any medication questions, your temperature is above 101, your wound has increased redness, your wound has i ncreased drainage and your wound pain has increased Follow-up/Referrals: Rosetta Santana MD [Primary Care Provider] - Diet: Regular Addtl Attending Provider Instructions: ACTIVITY RECOMMENDATIONS: SELF CARE INSTRUCTIONS AFTER TOTAL KNEE REPLACEMENT A. You may need to continue a physical therapy program after discharge from the hospital. There are several options available to you. Your doctor will assist you in selecting the best one for you. 1. An out-patient facility 2 to 3 times a week for therapy or home therapy. 2. Continue working on all exercises taught to you in the hospital. Your goals should be to increase bending of your knee to 90 degrees and beyond and to fully straighten your knee. B. You may progress at your own pace from walking with a walker or crutches to a cane; then to no assistive devices. C. Make walking a part of your daily routine. Be up as much as comfortable with rest periods throughout the day. Rest with leg elevation is very important. Use the ice wrap frequently for the first 3-4 weeks. D. There are no restrictions on activities. You may ride in a car, shop, participate in plush cutter and all social activities. E. Wear the long elastic stockings (SYDNEY hose) 20 hours a day for 2 weeks after surgery. They can be removed several times a day for laundering and for a bath. F. You may shower, no tub baths until cleared by your doctor. SPECIAL CARE INSTRUCTIONS: VERY IMPORTANT TO READ AND REVIEW A. There are a few signs you need to watch for after you are home. Call [facility] if you notice any of the followin. Increased severe knee pain. Some pain is expected especially when you exercise. 2. Increased swelling in your leg or knee; pain or swelling of the calf muscle in either lower leg. 3. Any fluid drainage from the incision. 4. Shortness of breath or chest pain. B. Please call [facility] at if you have any concerns or questions about your operation or recovery. The doctor or his nurse will return your call promptly. C. You must take antibiotics before dental work, bladder, bowel or other surgery. Your doctor will provide you with a permanent care to carry describing this precaution. IMPORTANT: * REMEMBER TO TAKE ASPIRIN, 81 MG, TWICE DAILY FOR 4 WEEKS UNLESS OTHERWISE DIRECTED. THIS IS YOUR BLOOD THINNER. * HIGH RISK PATIENTS MAY BE PRESCRIBED A STRONGER BLOOD THINNER. THIS WILL BE PROVIDED AT DISCHARGE. * CALL IF INCREASED PAIN, REDNESS, DRAINAGE OR FEVER GREATER THAT 101. * WEAR SYDNEY HOSE 20 HOURS PER DAY FOR 2 WEEKS. * KWAKU Dressing- This is a large suction dressing covering your incision. This will help pull any excess drainage from the wound and allow your incision to heal properly. You may shower with this if you can keep the unit outside of the shower. If any bleeding or leakage is noted please call your doctor's office. This will remain on your incision for 7 days and then should be removed. This can be done yourself or by the home nursing staff if applicable. The entire unit is disposable once removed. Once removed, keep incision clean and dry. If redness or drainage is noted, please call your surgeon. FOLLOW UP VISIT: If appointment is not already scheduled: Please call [facility] to make a follow-up appointment for 2 weeks after your surgery at . Stand-Alone Forms: My [facility] Medications and DC Order Prescriptions: New Xarelto 10 mg Tablet 10 mg PO DAILY 14 Days Qty: 14 0RF acetaminophen 500 mg tablet 1,000 mg PO Q8 21 Days Qty: 126 0RF cefadroxil 500 mg capsule 500 mg PO BID 14 Days Qty: 28 0RF docusate sodium 100 mg Capsule 100 mg PO BID Qty: 20 0RF oxycodone 5 mg tablet 5 - 10 mg PO Q6H PRN (Reason: pain) Qty: 30 0RF Rx Instructions: ongoing therapy, supervising dr michaelle burch. max 6 tabs in 24 hours, date of surgery 06/07/23 Continued diphenhydramine HCl [Benadryl] 25 mg capsule 50 mg PO TID Rx Instructions: Unable to verify OTC medications with patient/family at this date/time. Original Directions: 50mg by mouth three times daily gabapentin 600 mg tablet 1,200 mg PO TID Patient Comments: for allergies benzonatate 200 mg capsule 200 mg PO BID PRN (Reason: cough) Qty: 14 0RF albuterol sulfate 90 mcg/actuation HFA aerosol inhaler 1 inh inhalation QID PRN (Reason: illness) Discontinued acetaminophen [Acetaminophen Extra Strength] 500 mg Tablet 0 mg PO Q6H PRN (Reason: Fever Or Pain) Rx Instructions: Unable to verify OTC medications with patient/family at this date/time. Original Directions: 1000mg by mouth every 6 hour as needed for fever/pain Admission Data Admit Date/Time: 06/07/23 11:36 Attending Provider: Jeffery Burch Admit Provider: Jeffery Burch Primary Care Provider: Rosetta Santana V.
[2023-06-08] MEDS: MULTIVITAMIN TAB PO SCH (08:09)
[2023-06-08] MEDS: RIVAROXABAN 10 MG TABLET PO SCH (08:10)
--- OUTSIDE RECORDS SUMMARY | 2023-06-08 16:10 | External Medical Summary | Summary of Care ---
Author Name Unknown Organization [facility] Address [address] [place] [address] Phone [phone] Care Team Providers Care Processing Tech Name Role Phone Rosetta Landeros MD [facility] Care Provider Encounter Details Date Type Department Care Team (Latest Contact Info) Description 06/06/2023 11:31 AM EST - 06/06/2023 11:59 PM EST Hospital Encounter Radiology Film File [address] [place] [address] Arrived Discharge Disposition: Home - Self Care Allergies Active Allergy Reactions Criticality Noted Date Comments Pollen 03/23/2018 Pets,grass,some nuts,bananas kiwis,pineapple,eggplants documented as of this encounter (statuses as of 06/07/2023) Medications Medication Sig Dispensed Refills Start Date End Date Status diphenhydrAMINE HCl 25 MG Oral Capsule (Benadryl Allergy)Indications:A topic dermatitis, unspecified type Take 1 Capsule by mouth every 6 hours as needed for Itching. 0 Active metroNIDAZOLE 0.75 % External Cream (MetroCream)Indicatio ns:Perioral dermatitis Apply to face twice daily for 4 weeks 45 g 1 06/06/2023 Active Gabapentin 600 MG Oral Tablet (Neurontin)Indication s:Atopic dermatitis, unspecified type Take 2 tablets three times a day 360 Tablet 2 06/06/2023 Active documented as of this encounter (statuses as of 06/07/2023) Active Problems Problem Noted Date Diagnosed Date [...] as of this encounter (statuses as of 06/07/2023) Social History Tobacco Use Types Packs/Day Years [...] on file documented as of this encounter Plan of Treatment Upcoming Encounters Date Type Department Care Team (Late st Contact Info) Description 12/07/2023 2:30 PM EDT Office Visit Dermatology, [facility] [address] [place] [id number] Anu Garza PA-C [address] [place] [phone] Health Maintenance Due Date Last Done Comments [...] study not interpreted or resulted by a [employer] or [employer] contracted radiologist. Dariela Reeves PA-C RADIOLOGY (RAD GENERAL) documented in this encounter Care Teams Processing Tech Relationship Specialty Start Date End Date Rosetta Landeros MD [address] [address] PCP - General Internal Medicine 11/09/22 documented as of this encounter
[2023-06-08] MEDS: PANTOprazole 40 MG TAB PO SCH (20:04)
--- NOTE | 2023-06-09 07:12 | Orthopedic Progress Note ---
Date of Service June 09, 2023 Assessment & Plan (1) History of total right knee replacement: Plan: POD #2 s/p Right TKA pt/ot dvt proph with SYDNEY/SCD/Xarelto x 2 weeks plan for d/c home with HHPT. She states that she had a rough day yesterday with physical therapy, has had more pain since yesterday afternoon, but states the meds are helping. We discussed home health physical therapy versus rehab, she does not want to go to rehab, therefore we we will do physical therapy this morning and if she does better than she did yesterday would still discharge home today with home health physical therapy. Also was notified yesterday that the patient did not want to get out of bed, I did discuss this with her today and the importance of participating in physical therapy as well as getting out of bed and walking as well as sitting in the chair. She states she will try to do better today Admission and Anticipated Discharge Date Admission Date: June 07, 2023 Subjective POD #2 s/p Right TKA patient feeling anxious, tearful this am. denies CP/SOB Physical Exam Physical Exam: Vital Signs Temp 36.7 C 06/08/23 20:02 Pulse 67 06/08/23 20:02 Resp 16 06/08/23 20:02 BP 110/72 06/08/23 20:02 Pulse Ox 94 06/08/23 20:02 O2 Del Method Room Air 06/08/23 20:02 O2 Flow Rate 2.0 06/08/23 02:57 Intake & Output 06/08/23 06/09/23 06/09/23 18:59 06:59 18:59 Output Total 10 / 120 110 / 120 Balance -10 / -120 -110 / -120 Output: Drain Output 10 / 120 110 / 120 Right Knee 10 / 120 110 / 120 Other: # Unmeasured Voi ds 1 Musculoskeletal: Right knee: NVDI, calf SNT, negative seth sign. DP palpable, able to wiggle toes/ankle movement without difficulty. dressing clean dry and intact. Results & Data Vital Signs (Past 12 Hours) Vital Signs Temp Pulse Resp BP Pulse Ox O2 Del Method 06/08/23 20:02 36.7 C 67 16 110/72 94 Room Air Laboratory Results Laboratory Results WBC 9.81 K/ul (4.8-10.8) 06/08/23 05:38 RBC 3.34 M/uL (4.20-5.40) L 06/08/23 05:38 Hgb 11.1 g/dl (12.0-16.0) L 06/08/23 05:38 Hct 33.8 % (37.0-47.0) L 06/08/23 05:38 MCV 101.2 fL (80.0-100.0) H 06/08/23 05:38 MCH 33.2 pg (25.0-34.0) 06/08/23 05:38 MCHC 32.8 g/dL (32.0-36.0) 06/08/23 05:38 RDW Std Deviation 49.1 fL (36.4-46.3) H 06/08/23 05:38 RDW Coeff of Bob 13.2 % (11.5-14.5) 06/08/23 05:38 Plt Count 193 K/uL (130-400) 06/08/23 05:38 MPV 9.6 fL (9.4-12.4) 06/08/23 05:38 Sodium 137 mmol/L (136-145) 06/08/23 05:38 Potassium 4.2 mmol/L (3.5-5.1) 06/08/23 05:38 Chloride 107 mmol/L (98-107) 06/08/23 05:38 Carbon Dioxide 21 mmol/L (21-32) 06/08/23 05:38 Anion Gap 9 (3-11) 06/08/23 05:38 BUN 12 mg/dl (6-23) 06/08/23 05:38 Creatinine 1.10 mg/dl (0.6-1.2) 06/08/23 05:38 Est Cr Clr Drug Dosing 78.6 ml/min 06/08/23 05:38 Est GFR ( Amer) 65.5 ml/min 06/08/23 05:38 Est GFR (Non-Af Amer) 56.5 ml/min 06/08/23 05:38 BUN/Creatinine Ratio 10.9 (10-20) 06/08/23 05:38 Glucose 132 mg/dl (70-99(Fasting)) H 06/08/23 05:38 Calcium 8.1 mg/dl (8.6-10.3) L 06/08/23 05:38 Impressions Knee X-Ray 06/07/23 11:38 XR knee RT 1 or 2V routine HISTORY: 53 years-old Female Surgical Post Op right knee arthroplasty COMPARISON: None TECHNIQUE: 2 views of the right knee FINDINGS: Total joint arthroplasty with patellar resurfacing. Anterior midline skin jeffery with expected postoperative soft tissue swelling and deep tissue air with surgical drainage catheter. No acute fracture or expected opaque foreign body. IMPRESSION: Total joint arthroplasty with expected postoperative changes. ACT 112: Negative or not required by law. The above report was generated using voice recognition software. It may contain grammatical, syntax or spelling errors. Electronically signed by: Pierce Post M.D. 06/07/2023 2:08 PM
--- NOTE | 2023-06-10 06:09 | Orthopedic Progress Note ---
Date of Service June 10, 2023 Assessment & Plan (1) History of total right knee replacement: Plan: POD #3 s/p Right TKA pt/ot dvt proph with SYDNEY/SCD/Xarelto x 2 weeks plan for d/c home with HHPT. patient did not feel ready to go home yesterday, states her son is coming in from [place] today to help her home. discussed doing PT after breakfast and she states "no, i do not want to". I discussed importance of PT and getting out of bed. She states " i will get up once I am home". we will plan on d/c home later today once her son arrives with HHPT Admission and Anticipated Discharge Date Admission Date: June 07, 2023 Subjective POD #3 s/p Right TKA patient denies CP/SOB Physical Exam Physical Exam: Vital Signs Temp 37.2 C 06/09/23 19:32 Pulse 79 06/09/23 19:32 Resp 14 06/09/23 19:32 BP 141/85 H 06/09/23 19:32 Pulse Ox 95 06/09/23 19:32 O2 Del Method Room Air 06/09/23 19:32 O2 Flow Rate 3 06/09/23 08:02 Intake & Output 06/09/23 06/09/23 06/10/23 06:59 18:59 06:59 Output Total 110 / 120 0 / 1 1 / Balance -110 / -120 0 / -1 -1 / -1 Output: Drain Output 110 / 120 Right Knee 110 / 120 # Bowel Movement s 0 / 1 Other: # Unmeasured Voi ds 1 2 1 Musculoskeletal: Right knee: NVDI, calf SNT, negative seth sign. DP palpable, able to wiggle toes/ankle movement without difficulty. KWAKU dressing clean dry and intact. expected post-operative bruising noted. Results & Data Vital Signs (Past 12 Hours) Vital Signs Temp Pulse Resp BP Pulse Ox O2 Del Method 06/09/23 19:32 37.2 C 79 14 141/85 H 95 Room Air
== END 2023-06-10 12:14 | disposition home health service (06) ==
LOC: ASU 08:19 → 3E 08:19
DX: G43.909 Migraine, unspecified, not intractable, without status migrainosus; M17.11 Unilateral primary osteoarthritis, right knee; E66.01 Morbid (severe) obesity due to excess calories; Z68.43 Body mass index [BMI] 50.0-59.9, adult; R25.1 Tremor, unspecified; F41.8 Other specified anxiety disorders; Z79.51 Long term (current) use of inhaled steroids; Z79.899 Other long term (current) drug therapy; K21.9 Gastro-esophageal reflux disease without esophagitis; M26.609 Unspecified temporomandibular joint disorder, unspecified side; Z91.018 Allergy to other foods